=== PATIENT | female | born 1975 | race Caucasian/White ===

== ENCOUNTER → 2016-08-08 | Outpatient (CLI) | payer OTHER ==
[~2016-08-08] VITALS: Ht 160 cm; Wt 96.6 kg
[~2016-08-08] MED LIST: AMITIZA8 MCG PO; AMRIX15 MG PO; B12INJ IM; BACLOFEN VG; BIEST/PROGEST; BUTRANS1 EAC1 TD; CIPRO500 MG PO; DESYREL100 MG PO; DESYREL150 MG PO; DIGESTIVE ENZY1 EAC3 PO; DULCOLAX5 MG PO; FENTANYL PA12 MCG/HR TP; FENTANYL PA25 MCG/HR TP; FISH OIL 1,0001 EAC5 PO; FISHOIL; FLONASE 0.05%50 MCG NASAL; HYDROCODON-ACE1 EAC7 PO; HYDROCODON-ACE1 EAC8 PO; HYDROCODONE-AP1 EA11 PO; HYDROCODONE-AP1 EAC6 PO; IBUPROFEN 200200 M1 PO; IBUPROFEN 600600 M1 PO; IRON PO; LEVSIN SL; LINZESS145 MCG PO; LYRICA150 MG PO; LYRICA200 MG PO; MIRALAX255 GM PO; MS CONTIN15 MG PO; NUCYNTA75 MG PO; OMEPRAZOLE 20 M20 M1 PO; ONE DAILY COMP1 EAC1 PO; PHENERGAN 25 MG25 M1 PO; PHENERGAN 25 MG25 MG PO; PRILOSEC 20 MG20 MG PO; PROBIOTIC1 EAC1 PO; REGLAN 5 MG TAB5 MG PO; SENOKOT-S1 TA1 PO; VANCOMYCIN PO; XANAX 0.25 MG0.25 MG PO; XANAX 0.5 MG0.5 MG PO; ZOFRAN4 MG PO; ZYRTEC10 M4 PO; [UNRECOGNIZED DRUG - OTHER]; [UNRECOGNIZED DRUG - OTHER]; [UNRECOGNIZED DRUG - OTHER]; [UNRECOGNIZED DRUG - OTHER]
--- NOTE | ~2016-08-08 | HPC ---
[facility] [place] [address] PAIN MANAGEMENT CONSULTATION Name: MAYUR GIFFORD Room #: REG [facility] M..#: [id number] Admission: 08/08/16 Attend Phys: Urban Wooten DO Discharge: Date of : 71 Report #: [id number] THIS REPORT FOR: //name// CC: Connie Boyer MD REFERRING PHYSICIAN: Connie Gonzalez M.D. CHIEF COMPLAINT: Abdominal pain, fibromyalgia pain. HISTORY OF PRESENT ILLNESS: As you know, the patient is a 40-year-old female who suffers from chronic abdominal pain, fibromyalgia pain, generalized pain disorder. The patient returns today in followup visit indicating that "this is her busy season." The patient is involved in traveling choir and they have chose a plan for the next couple of weeks. She returns today requesting refill on medication as she does find them beneficial. The patient comes today with a pain score of 3/10, states her pain is aching, sore and stabbing in sensation, exacerbated with eating and varies throughout the day. Medications and rest appear to be the only thing that improves the patient's pain. ALLERGIES: CONTRAST AGENT, OXYCODONE, NUBAIN, PROPOXYPHENE, DICYCLOMINE, TRAMADOL, VENLAFAXINE, KEFLEX, IMIPRAMINE, MORPHINE, OPIUM, ACETAMINOPHEN, BELLADONNA, CLARITHROMYCIN, GABAPENTIN, ANTIPSYCHOTICS, BUTRANS. SOCIAL HISTORY: The patient denies tobacco, alcohol or IV illicit drug use. She is unemployed. She is unaccompanied today. IMAGING: No new imaging available. PHYSICAL EXAMINATION: VITAL SIGNS: Blood pressure 126/77, pulse 92, respiratory rate 14, unlabored. The patient is 100% on room air. Height 5 feet 3 inches tall, weight 213 pounds, BMI calculated 37.7. GENERAL: Well developed, well nourished, well hydrated, morbidly obese 40-year-old female with flat affect, reporting pain at a level of 3/10. HEENT: Normocephalic, atraumatic. Pupils equal, round, reactive to light. Extraocular muscles are intact. EXTREMITIES: Show no clubbing, no cyanosis, no edema. MUSCULOSKELETAL: The patient is tender to palpation of 18 of 18 tender points indicative of a myofascial pain. ASSESSMENT: 1. Chronic undefined abdominal pain. 2. Fibromyalgia. 3. Myofascial pain. [address] [address] PAIN MANAGEMENT CONSULTATION Name: MAYUR GIFFORD [id number] Admission: 08/08/16 Attend Phys: Urban Wooten DO Discharge: Date of : 71 Report #: [id number] 4. Sedentary lifestyle. 5. Chronic intractable pain. PLAN: 1. The patient has returned today in followup visit where we have discussed at length her lack of activities and hobbies. The patient states that she recently did join a gym. She is paying for the gym on a monthly basis, but has yet to actually attend the gym itself. She is concerned of increasing pain. I have advised the patient at this time that we highly recommend she get involved in a formalized physical therapy program initially. This will help ease the patient into personal gym workouts and exercise program. A formalized program initially will give the patient the tools to begin an exercise program that will be positive for her both physically and mentally. I have provided the patient with a prescription for the physical therapy to begin as quickly as possible. This will help motivate the patient to become more physically active, which is the number one treatment option per the CDC's recommended guideline treatment for fibromyalgia, which is exercise and activities. The patient will begin the exercise program as quickly as possible, we are requesting a generalized assessment of the patient and myofascial techniques to adjust for patient's fibromyalgia symptoms of transitioning the patient from the formalized program into individualized program at her local gym. 2. The patient was provided refill on medications. I did discuss with the patient today that these medications ultimately will have to be discontinued. Continuation of opioid medications in an undefined abdominal pain condition is not clinically warranted. We have been providing these medications as the patient was doing workups for abdominal discomfort. There has been no specific etiology noted. Without a true and clear etiology and treatment plan, continuation of an opioid in a patient with fibromyalgia is a relative contraindication. I have discussed with the patient today our desire to begin weaning off the opioids as they are providing no prolonged improvement in her functional capacity. We will discuss this again in followup visit with plans to begin weaning opioids at that time. 3. The patient was provided a prescription of hydrocodone 7.5/325 one tab q. 8 hours p.r.n. for pain, ____. 4. The patient will be continued on her Lyrica 200 mg dose 1 tab p.o. b.i.d., I have given the patient #60 tablets, 2 refills. 5. The patient will return to our clinic in 3 months. At that time, she will be actively participating in physical workout routines. She will also be more involved in her choir and we should be able to begin weaning opioids at that point. As indicated above, chronic abdominal pain issues do not require ongoing opioid management. By: [id number] Urban Wooten DO /marcelino
[2016-08-08 10:13] VITALS: BP 126/77
== END ==
LOC: PAIN 07:32
DX: R10.9 Unspecified abdominal pain (principal); M79.7 Fibromyalgia; M79.1 Myalgia

== ENCOUNTER → 2016-11-07 | Outpatient (CLI) | payer OTHER ==
[~2016-11-07] VITALS: Ht 160 cm; Wt 97.3 kg
--- NOTE | ~2016-11-07 | HPC ---
[facility] [place] [place] [address] PAIN MANAGEMENT CONSULTATION Name: MAYUR GIFFORD Room #: REG CL M..#: [id number] Admission: 11/07/16 Attend Phys: Urban Wooten DO Discharge: Date of : 71 Report #: [id number] THIS REPORT FOR: //name// CC: Connie Boyer DATE OF SERVICE: 11/07/2016 REFERRING PHYSICIAN: Connie Gonzaelz M.D. CHIEF COMPLAINT: Abdominal pain and fibromyalgia pain. HISTORY OF PRESENT ILLNESS: As you know, the patient is a 41-year-old female followed by [facility] for chronic abdominal pain, fibromyalgia pain and generalized pain disorder. Today, the patient returns today in followup visit stating her pain has been exacerbated with changes in weather. She is now placing pain score 3/10. She indicates pain is aching sore and stabbing, exacerbated with eating, varies throughout the day. Medications rest and weather changes appear to improve the pain but also tend to exacerbate symptoms at times. She returns today in followup visit for continuation of medication therapy. She is denying any side effects of medication, feels medications do provide upwards of 75% improvement in overall pain, allowing her to go about her activities of daily living without significant pain interference. ALLERGIES: Please see the extensive list in chart. CURRENT MEDICATIONS: Lyrica, hydrocodone, fluticasone, cetirizine, ibuprofen, vitamin B12, alprazolam, digestive enzymes, lactobacillus, ondansetron and trazodone. SOCIAL HISTORY: The patient denies tobacco, alcohol, IV or illicit drug use. She is unemployed. She is unaccompanied today. IMAGING DATA: No new imaging available. PHYSICAL EXAMINATION: VITAL SIGNS: Blood pressure 112/68, pulse 102, respiratory rate 16 and unlabored. The patient is 100% on room air. Height 5 feet 3 inches tall, weight 214.4 pounds and BMI calculated 41.9. GENERAL: Well developed, well nourished and well hydrated, severely morbidly obese 41-year-old female appearing her stated age. Pain is rated at 3/10. HEENT: Normocephalic and atraumatic. Pupils equal, round and reactive to light. Extraocular muscles are intact. Sclerae nonicteric without injection. NEUROLOGICAL: Cranial nerves 2 through 12 grossly intact. Speech is fluent. EXTREMITIES: Show no clubbing, no cyanosis and no edema. [facility] [address] [place] [address] PAIN MANAGEMENT CONSULTATION Name: MAYUR GIFFORD [id number] Admission: 11/07/16 Attend Phys: Urban Wooten DO Discharge: Date of : 71 Report #: [id number] MUSCULOSKELETAL: The patient has positive tenderness to palpation of 18/18 tender points indicative of fibromyalgia. Upper extremity strength and lower extremity strength equal and symmetrical. There is no tenderness to palpation over the abdomen today. ASSESSMENT: 1. Chronic undefined abdominal pain. 2. Fibromyalgia. 3. Chronic intractable pain. PLAN: 1. The patient has returned today in followup visit for medication management. The patient and I had a very long discussion today about medication therapy. I did discuss with the patient that chronic abdominal pain cannot be treated successfully with opioid medications long-term. We have discussed with the patient that we are considering rotation of medication to nonopioid medication therapy. The patient suffers from fibromyalgia, which I believe is the source of the majority of her symptoms and opioids are relatively contraindicated. We have discussed this with the patient today. At this time, the patient does not wish to make any changes but is considering her options for change at her next visit. I do feel that chronic opioid therapy has improved the patient's pain levels to a minor degree but have not provided a long-term efficacy. The patient has requested refills for the next 3 months as she considered her options for her rotation of medications. 2. The patient was provided a prescription of hydrocodone/acetaminophen 7.5/325 one tab every 8 hours p.r.n. for pain, #90 releases of today, 4 weeks from today, 8 weeks from today, 3 months' worth of medication. 3. The patient was provided a prescription of Lyrica 200 mg dose 1 tab p.o. b.i.d., given #60, 2 refills, 3 months' worth of medication. 4. We will see the patient back in followup visit in 3 months where we will begin rotation from opioids to more appropriate medications for fibromyalgia symptoms. <ELECTRONICALLY SIGNED> By: Urban Wooten DO 11/09/16 1359 0730 0749 Urban Wooten DO /nt
[2016-11-07 09:54] VITALS: BP 112/68
== END | disposition home or self-care (01) ==
LOC: PAIN 07:27
DX: R10.9 Unspecified abdominal pain (principal); M79.7 Fibromyalgia; G89.29 Other chronic pain

== ENCOUNTER → 2017-04-30 | Outpatient (CLI) | payer OTHER ==
[~2017-04-30] VITALS: Ht 160 cm; Wt 100.9 kg
[~2017-04-30] MED LIST changes: +FLEXERIL PO; +MIRALAX17 GM PO; +SENOKOT8.6 MG PO
--- NOTE | ~2017-04-30 | HPC ---
[facility] [place] [address] PAIN MANAGEMENT CONSULTATION Name: MAYUR GIFFORD Room #: REG [facility] M.R.#: [id number] Admission: 04/30/17 Attend Phys: Urban Wooten DO Discharge: Date of : 71 Report #: [id number] THIS REPORT FOR: //name// CC: Connie Boyer DATE OF SERVICE: 04/30/2017 CHIEF COMPLAINT: Abdominal pain, fibromyalgia pain. HISTORY OF PRESENT ILLNESS: As you know, the patient is a 41-year-old female who complains of chronic abdominal pain and increasing fibromyalgia pain. The patient returns today in followup visit for medication management. She states that she has been involved more in some activities; specifically, she is doing some yoga at home and thinks that this is working beneficially. She says her pain has intensified with recent cold weather. This is due to her fibromyalgia. She returns today requesting refills of her hydrocodone therapy. She finds this beneficial for her abdominal symptoms. She is denying any side effects with their use. She has requested refills for the next 3 months. ALLERGIES: See the extensive list in chart. CURRENT MEDICATIONS: Pregabalin 200 mg twice a day, hydrocodone 7.5/325 one tab every 8 hours p.r.n. for pain, fluticasone 2 sprays each nostril per day, Zyrtec 10 mg per day, ibuprofen 200 mg 5 times a day, alprazolam 0.5 mg once a day, digestive enzymes once a day, Lactobacillus 1 tab per day, Zofran 4 mg per day, trazodone 150 mg p.o. at bedtime. IMAGING: No new imaging available. PHYSICAL EXAMINATION: VITAL SIGNS: Blood pressure 126/63, pulse 83, respiratory rate 14, unlabored. The patient is 99% on room air. Height 5 feet 3 inches tall, weight 222.4 pounds, BMI calculated 39.4. GENERAL: Well-developed, well-nourished, well-hydrated, morbidly obese 41-year-old female who appears her stated age. She is placing current pain score 3/10, generalized in nature. HEENT: Normocephalic, atraumatic. Pupils equal, round, reactive to light. EXTREMITIES: Show no clubbing, no cyanosis, no edema. MUSCULOSKELETAL: Tenderness to palpation at tender points indicative of fibromyalgia. ASSESSMENT: 1. Chronic abdominal pain. 2. Chronic pelvic pain. [address] [address] PAIN MANAGEMENT CONSULTATION Name: MAYUR GIFFORD Room #: REG [facility]#: [id number] Admission: 04/30/17 Attend Phys: Urban Wooten DO Discharge: Date of : 71 Report #: [id number] 3. Fibromyalgia. 4. Chronic intractable pain. PLAN: 1. The patient returns today in followup visit requesting refill on medications. She feels medications in conjunction with activities at home have begun to improve pain until a recent cold snap, which has gripped the [place] for approximately 3 weeks. The patient states typically her pain is fairly well controlled with current medical therapy. She wishes to continue on current medications. We did discuss with the patient today that she needs to become much more active. She needs to become certainly more active with exercise programs. She needs to be involved in aqua therapy, which has been shown to be very effective for fibromyalgia patients specifically in warm pools. I applaud the patient for beginning some yoga, but needs to do this consistently in conjunction with the aqua therapy. We also discussed the possibility of relocating to a warmer climate, which would reduce the effects of climate change here in the [place] area. The patient states that she cannot make a move at this time. She wished to continue therapy. She will try to increase her activity. She is concerned about weight gain and I believe that activity will improve her weight issues, but also improve her fibromyalgia. 2. The patient was provided a prescription of Lyrica 200 mg dose 1 tab p.o. b.i.d., given the patient #60 tablets, 2 refills. The patient is going to attempt to reduce her Lyrica, she believes this is the reason for her weight gain. This medication does show the potential for increase in weight, but this has to come with increased caloric intake and lack of caloric output. I believe activities such as exercise would mitigate the amount of weight, potential increase that she is receiving from the Lyrica and its effects. The patient is adamant that the medication is the source of the symptoms. She wishes to begin weaning off this medication, but understands that her pain will likely intensify. We have given the patient samples to reduce her dose from 200 mg twice a day to 150 mg twice a day for 1 week then down to 75 mg twice a day for 1 week and then off the medication entirely. 3. The patient was provided prescription of hydrocodone 7.5/325 one tab every 8 hours p.r.n. pain. I have given the patient #90, releases of today, 4 weeks from today, 8 weeks from today, 3 months' worth of medication. I have advised the patient that she is to take no more than 3 tablets a day, 3 tablets is the maximum to be allowed. We did discuss the concerns we have about opioid medication in fibromyalgia. Fibromyalgia is a contraindication for opioid therapy. We will continue the medication for her pelvic and abdominal pain, but have advised that her increased generalized pain cannot be and will not be treated with hydrocodone therapy. 4. We will see the patient back in followup visit in 3 months. She will contact our clinic in regards to her weaning of Lyrica. She will advise as whether or not she filled the 200 mg twice a day dose of the Lyrica or she [address] [address] PAIN MANAGEMENT CONSULTATION Name: MAYUR GIFFORD ZAINA Room #: REG CL [facility].#: [id number] Admission: 04/30/17 Attend Phys: Urban Wooten DO Discharge: Date of : 71 Report #: [id number] wishes a reduced dose and she can contact our clinic to advice of the dose level she reaches without loss of efficacy. <ELECTRONICALLY SIGNED> By: Urban Wooten DO 05/07/17 0906 [id number] Urban Wooten DO /nt
[2017-04-30 10:54] VITALS: BP 126/63
== END ==
LOC: PAIN 07:13
DX: G89.29 Other chronic pain (principal); R10.9 Unspecified abdominal pain; M79.7 Fibromyalgia; R10.2 Pelvic and perineal pain

== ENCOUNTER → 2018-03-11 | Outpatient (CLI) | payer OTHER ==
[~2018-03-11] VITALS: Ht 160 cm; Wt 96.6 kg
--- NOTE | ~2018-03-11 | HPC ---
[facility] [place] [address] [place] [address] PAIN MANAGEMENT CONSULTATION Name: MAYUR GIFFORD Room #: REG [facility] M..#: [id number] Admission: 03/11/18 Attend Phys: Urban Wooten DO Discharge: Date of : 71 Report #: [id number] THIS REPORT FOR: //name// CC: Connie Boyer DATE OF SERVICE: 03/11/2018 CHIEF COMPLAINT: Abdominal pain, generalized myalgias secondary to fibromyalgia. HISTORY OF PRESENT ILLNESS: As you know, the patient is a very unfortunate but pleasant 42-year-old female who returns today in followup visit with chronic abdominal pain and generalized body pain for which she places pain score 2/10. She states that change in weather has exacerbated her chronic pain issues. This in conjunction with a newly diagnosis bronchitis has made the patient feel much "poorer." She returns today in followup visit requesting refill on medications. 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 She returns requesting refill on medications at current dosing. She is denying side effects of somnolence, decreased mental acuity, disorientation, confusion, mental slowing with the use. ALLERGIES: CONTRAST AGENT, OXYCODONE, NUBAIN, PROPOXYPHENE, DICYCLOMINE, TRAMADOL, VENLAFAXINE, CEPHALEXIN, IMIPRAMINE, MORPHINE, OPIUM, ACETAMINOPHEN, BELLADONNA, CLARITHROMYCIN, GABAPENTIN, ANTIPSYCHOTICS, IV IRON INFUSIONS AND BUTRANS. CURRENT MEDICATIONS: For pain, hydrocodone 7.5/325 one tab every 6 hours p.r.n. for pain, Lyrica 200 mg twice a day. SOCIAL HISTORY: The patient denies tobacco, alcohol, IV or illicit drug use. She is on disability. She is unaccompanied today. IMAGING: No new imaging available. PQRS: The patient has no known osteoarthritis or rheumatoid arthritis. She is placing pain intensity 2/10. She is not a fall risk, has not had a fall in the last 3 months. She is not on blood thinners. She is not treated for hypertension. She has been on chronic opioids for greater than 6 weeks. She is at moderate risk for opioid addiction. She is placing pain impact at 37/70, moderate interference of daily activities secondary to pain. PHYSICAL EXAMINATION: VITAL SIGNS: Blood pressure 102/89, pulse 107, respiratory rate 14 and [facility] [address] [place] [address] PAIN MANAGEMENT CONSULTATION Name: MAYUR GIFFORD Room #: REG [facility].#: [id number] Admission: 03/11/18 Attend Phys: Urban Wooten DO Discharge: Date of : 71 Report #: [id number] unlabored. The patient is 97% on room air. Height 5 feet 3 inches tall, weight 213 pounds, BMI calculated 37.7. GENERAL: Well-developed, well-nourished, well-hydrated, class 1 morbidly obese 42-year-old female appearing stated age, placing current pain score 2/10. HEENT: Normocephalic, atraumatic. Pupils equal, round, reactive to light. Extraocular muscles are intact. EXTREMITIES: Show no clubbing, no cyanosis, no edema. MUSCULOSKELETAL: There is decreased respiratory effort. There is wheezing noted with inhalation and exhalation. ASSESSMENT: 1. Chronic abdominal pain. 2. Chronic pelvic pain. 3. Fibromyalgia. 4. Chronic intractable pain. PLAN: 1. The patient returns today in followup visit requesting refill on medications. She feels medications are working beneficially for pain control. We have had a long discussion again with the patient about the use of these medications. We are utilizing the medication specifically for the chronic abdominal symptoms and pelvic pain. They are not to be used for her generalized fibromyalgia pain as it is noted the fibromyalgia pain is unaffected by opioid medications and should not be utilized based on CDC's recommendations. We will continue the patient on the current medications for her chronic abdominal pain, chronic pelvic pain with the caveat that she is not to use this medication for generalized body pain. 2. We reviewed the fact that opiate medications are being used to provide analgesia adequate to support activities of daily living, not attempting to achieve a specific pain score on the 0-10 Visual Analog Scale. The current opiate medications are providing sufficient analgesia to allow the patient to participate in activities of daily living. The patient is not exhibiting any aberrant behavior suggestive of drug diversion. The patient is not having any adverse reactions to medications. The patient is not suffering from daytime somnolence or mental acuity changes. The patient is managing opiate-induced constipation with appropriate ezee-pje-jgnfhje agents and dietary considerations. The patient was counseled on concern for caution with operating a motor vehicle while using opiate medications. A physical exam was performed and the patient's functional status was evaluated. All patients with back pain were advised against the bed rest greater than 4 days and were advised to return to normal activities. Pain score assessment was noted and the treatment plan was reviewed with the patient. All current medications, both prescribed and OTC were reviewed and reconciled on the electronic medical record. Tobacco screening was accomplished and smoking cessation was advised when indicated. BMI was noted and diet/exercise [address] [address] PAIN MANAGEMENT CONSULTATION Name: MAYUR GIFFORD Room #: REG [facility].#: [id number] Admission: 03/11/18 Attend Phys: Urban Wooten DO Discharge: Date of : 71 Report #: [id number] modification was recommended for all patients following outside normal parameters. I reviewed with the patient today their responsibilities to safeguard prescription medications, reviewed their responsibility to utilize medications only as prescribed by the physician. They are to seek and receive pain medications only from 1 physician group ( [facility]). They are to use 1 pharmacy and keep the clinic informed if they change pharmacies. Their responsibilities include making followup visits in a timely fashion and to avoid abrupt discontinuation of medication usage. Their responsibilities further include bringing their medications (bottles from the pharmacy with residual pills) to the visit for possible confirmation of pill counts and the patient understands it is their responsibility to submit to random drug screens to ensure both that the medications prescribed are present, and that no other controlled substances are present. All prescriptions provided today were generated electronically. 3. The patient was provided prescription of [place] 7.5/325 one tab every 8 hours p.r.n. for pain, #90 releases of today, 4 weeks from today, 8 weeks from today, 3 months' worth of medication. The patient was advised that she is taking 22.5 morphine equivalents a day, well below CDC's recommended 90 morphine equivalents maximum. 4. The patient provided a urine drug screen today as part of our monitoring program based on our opioid contract. We will have the results back in approximately 1 week. 5. We will see the patient back in followup visit in 3 months for ongoing medical therapy. <ELECTRONICALLY SIGNED> By: Urban Wooten DO 03/12/18 0814 [id number] [id number] Urban Wooten DO /nt
[2018-03-11 08:57] VITALS: BP 102/89
== END ==
LOC: PAIN 08:38
DX: M79.7 Fibromyalgia (principal); R10.9 Unspecified abdominal pain; G89.4 Chronic pain syndrome; R10.2 Pelvic and perineal pain

== ENCOUNTER → 2018-06-17 | Outpatient (CLI) | payer OTHER ==
[~2018-06-17] VITALS: Ht 160 cm; Wt 93.2 kg
--- NOTE | ~2018-06-17 | HPC ---
[facility] [place] [address] PAIN MANAGEMENT CONSULTATION Name: MAYUR GIFFORD Room #: REG [facility] M..#: [id number] Admission: 06/17/18 ������������������ Attend Phys: Urban Wooten DO Discharge: ������������������ Date of : 71 Report #: [id number] THIS REPORT FOR: //name// CC: Connie Boyer DATE OF SERVICE: 06/17/2018 CHIEF COMPLAINT: Abdominal pain and generalized myalgias secondary to fibromyalgia. HISTORY OF PRESENT ILLNESS: As you know, the patient is a very unfortunate but pleasant 42-year-old female who returns today in followup visit for medication treatments for chronic abdominal pain, generalized body pain due to fibromyalgia. The patient is placing pain today at around 3/10. She states the cold weather in conjunction with 2 different recent hospitalizations have led to increasing pain issues. The patient has been hospitalized twice for pneumonia and is continuing workup with Pulmonology in regards to long-term pneumonia issues. There is some concern the patient may be suffering from some type of immune dysfunction. She indicates that her chronic abdominal pain has been relatively steady, but her fibromyalgia symptoms have progressed. She returns to discuss continuation of medication management. She is denying any side effects to the Lyrica and Fruitland to date. ALLERGIES: IV CONTRAST AGENT, OXYCODONE, NUBAIN, PROPOXYPHENE, DICYCLOMINE, TRAMADOL, VENLAFAXINE, CEPHALEXIN, IMIPRAMINE, MORPHINE, OPIUM, ACETAMINOPHEN, BELLADONNA, CLARITHROMYCIN, GABAPENTIN, ANTIPSYCHOTICS, IV and IRON INFUSIONS and BUTRANS PATCHES. CURRENT MEDICATIONS: For pain, hydrocodone 7.5/325 one tab p.o. q. 6 hours p.r.n. for pain and Lyrica 150 mg b.i.d. SOCIAL HISTORY: The patient denies tobacco, alcohol or IV or illicit drug use. She is on disability and unaccompanied today. IMAGING DATA: No new imaging available. PQRS: The patient has no known osteoarthritis or rheumatoid arthritis. The patient is placing pain score 3/10. She is not a fall risk, has not had a fall in the last 3 months. She uses no ambulatory devices. She is not on blood thinners, not treated for hypertension. She is on chronic opioids. She has a moderate risk for opioid addiction. She is placing pain impact score 37/70, moderate interference of daily activities secondary to pain. [address] [address] PAIN MANAGEMENT CONSULTATION Name: MAYUR GIFFORD Room #: REG CLI [facility].#: [id number] Admission: 06/17/18 ������������������ Attend Phys: Urban Wooten DO Discharge: ������������������ Date of : 71 Report #: [id number] PHYSICAL EXAMINATION: VITAL SIGNS: Blood pressure 102/66, pulse 73 and respiratory rate 14 and unlabored. The patient is 100% on room air. Height 5 feet 3 inches tall, weight 205.4 pounds and BMI calculated 36.4. GENERAL: Well-developed, well-nourished, well-hydrated 42-year-old female appearing stated age, placing current pain score 3/10. HEENT: Normocephalic and atraumatic. Pupils equal, round and reactive to light. EXTREMITIES: Show no clubbing, no cyanosis and no edema. MUSCULOSKELETAL: No palpatory tenderness is noted over the paraspinal musculature of the cervical, thoracic or lumbar spine. There are multiple tender points on the typical distribution of fibromyalgia 1618. ASSESSMENT: 1. Chronic abdominal pain. 2. Chronic pelvic pain. 3. Fibromyalgia. 4. Chronic intractable pain. PLAN: 1. The patient returns today in followup visit indicating 2 recent hospitalizations for pneumonia issues. Apparently, the patient is being worked up for possible immune dysfunction but no specific testing has been positive for any specific, IgA, IgM or IgG deficiency. She is following up with Pulmonology in regards to chronic pneumonia issues and we await the results from that discussion. We recommend that she follow up with her PCP to continue treatment and referral for her ongoing issues in regards to possible immune deficiency or chronic pneumonia that has yet to be resolved. 2. In regards to the patient's ongoing pain, we will continue the patient on the Lyrica 150 mg tabs 1 tab p.o. b.i.d., I have given the patient #60 tablets, 2 refills, 3 months' worth of medication. This is the baseline medication for her fibromyalgia. 3. The patient was provided a prescription of Fruitland 7.5/325 one tab p.o. q. 8 hours p.r.n. for pain, I have given the patient #90 tablets to release today, 4 weeks from today, 8 weeks from today, 3 months' worth of medication. 4. We reviewed with the patient her drug screen from 03/11/2018 at her last visit. She was positive for alprazolam, cyclobenzaprine, hydrocodone, Lyrica and Xanax. These appear to be appropriate based on the patient's drug regimen. This appeared to be an appropriate urine drug screen. As you are aware drug screens are part of our monitoring program for our chronic opioid patients. 5. We will see the patient back in followup visit in 3 months. ��������������������������������������������� ���������������������������������������� By: ��������������������������������������������� [id number] Urban Wooten DO /marcelino
[2018-06-17 10:42] VITALS: BP 102/66
--- NOTE | 2018-06-17 10:55 | NUR ---
[facility] Assessment: 1. History of Osteoarthritis: Not Applicable History of Rheumatoid Arthritis: Not Applicable 2. Height: 5 ft. 3 in. 160.0 cm. Weight: 205.4 lb. oz. 93.169 kg. Patient's BMI: 36.4 3. Vital Signs: BP: 102/66 Pulse: 73 Resp: 14 Temp: 02 Sat: 100 ECG Mon: 4. Pain Intensity: 3 5. Fall Risk: Dizziness: N Needs help standing or walking: N Fallen in the last 3 months: N Fall risk comments: 6. Patient on Blood Thinner: None 7. History of Hypertension: N 8. Opioid Therapy greater than 6 weeks: Y Opiate Contract Signed: 11/29/15 9. Risk Assessment Tool Provided: MODERATE RISK 07/20 10. Functional Assessment Tool: 11. Recreational Drug Use: Never Drug Type: Tobacco Use: Never Smoker Tobacco Type: Amount or Packs/day: How Many Years: Alcohol Use: No Frequency: Quant:
== END ==
LOC: PAIN 06:45
DX: R10.9 Unspecified abdominal pain (principal); R10.2 Pelvic and perineal pain; G89.4 Chronic pain syndrome; M79.7 Fibromyalgia; Z79.899 Other long term (current) drug therapy

== ENCOUNTER → 2018-09-16 | Outpatient (CLI) | payer OTHER ==
[~2018-09-16] VITALS: Ht 160 cm; Wt 89.9 kg
[2018-09-16 12:56] VITALS: BP 145/89
--- NOTE | 2018-09-16 12:59 | NUR ---
Pain Clinic Assessment: 1. History of Osteoarthritis: Not Applicable History of Rheumatoid Arthritis: Not Applicable 2. Height: 5 ft. 3 in. 160.0 cm. Weight: 198.2 lb. oz. 89.903 kg. Patient's BMI: 35.1 3. Vital Signs: BP: 145/89 Pulse: 104 Resp: 16 Temp: 02 Sat: 99 ECG Mon: 4. Pain Intensity: 6-7 5. Fall Risk: Dizziness: N Needs help standing or walking: N Fallen in the last 3 months: N Fall risk comments: 6. Patient on Blood Thinner: None 7. History of Hypertension: N 8. Opioid Therapy greater than 6 weeks: Y Opiate Contract Signed: 11/29/15 9. Risk Assessment Tool Provided: MODERATE RISK 07/20 10. Functional Assessment Tool: 11. Recreational Drug Use: Never Drug Type: Tobacco Use: Never Smoker Tobacco Type: Amount or Packs/day: How Many Years: Alcohol Use: No Frequency: Quant:
--- NOTE | 2018-09-17 07:21 | HPC ---
[facility] [place] [address] PAIN MANAGEMENT CONSULTATION Name: BALTAMAYUR ZAINA Room #: REG [facility].#: [id number] Admission: 09/16/18 ������������������ Attend Phys: Mayur Taveras Discharge: ������������������ Date of : 71 Report #: [id number] THIS REPORT FOR: //name// CC: Mayur Clarke Rosalind DATE OF SERVICE: 09/16/2018 CHIEF COMPLAINT: Abdominal pain, generalized malaise. HISTORY OF PRESENT ILLNESS: This is a 43-year-old female who returns to the pain clinic today for her chronic abdominal pain and generalized body aches and pains. She places her pain score today at 6-7. She tells me that it is higher than her normal because she recently had UTI that she was being treated for with antibiotics, but she is still not feeling better, even though she has completed those. She tells me her interstitial cystitis has flared up and she feels like she still has urinary tract infection, complaining of slightly dizzy feeling today and she is nauseated, having vomited 3 times earlier today. Her blood pressure is slightly elevated for her. She is afebrile, but tells me that her entire body feels bad like she is sick, wondering if there is something other than just a urinary tract infection going on. She is here to get her pain medications from us that we give her for her chronic abdominal and pelvic pain, stating that they normally work much better than they are working right now since her pain has increased. ALLERGIES: Significant list of IODINE, PERCOCET, NUBAIN, DARVOCET, BENTYL, ULTRAM, EFFEXOR, KEFLEX, IMIPRAMINE, MORPHINE, OPIUM, BELLADONNA, BIAXIN AND GABAPENTIN. CURRENT LIST OF MEDICATIONS: Lyrica 150 b.i.d., hydrocodone 7.5/325 p.r.n., Senokot, Flexeril, Zyrtec, Xanax 0.5 mg 4 times a day, Digestive enzyme probiotic and trazodone 150 at bedtime. PQRS: 1. She has no known osteoarthritis or rheumatoid arthritis. 2. Height is 5 feet 3 inches, weight is 198, BMI is 35. 3. VITAL SIGNS: 145/89, pulse is 104, respirations 16, oxygen sat is 99. 4. Pain score 6-7. 5. Complains of dizziness today, does not need help walking or standing. Has not fallen in the last 3 months. 6. The patient is not on any blood thinners, does not take medicines for hypertension. 7. Opioid therapy is greater than 6 weeks; therefore, an opioid signed contract is on the chart. She has a moderate risk assessment tool and her functional assessment of 37/70. 8. Recreational drug use, she denies. She is not a [place] [address] PAIN MANAGEMENT CONSULTATION Name: MAYUR GIFFORD ZAINA Room #: REG [facility]vis#: [id number] Admission: 09/16/18 ������������������ Attend Phys: Mayur Taveras Discharge: ������������������ Date of : 71 Report #: [id number] alcohol. We did check the prescription monitoring system. The patient is filling appropriately for her medications. There is also a recent drug screen on the chart that is appropriate for her medications. PHYSICAL EXAMINATION: GENERAL: This is a well-developed, well-nourished, well-hydrated class 1 morbidly obese 43-year-old female who appears her stated age, placing her current pain score at 6-7 today. The patient looks tired, but she does not look like she feels well today. HEENT: Normocephalic, atraumatic. Pupils equal, round and reactive to light. Extraocular muscles are intact. EXTREMITIES: No clubbing, no cyanosis, no edema. ABDOMEN: Complains of tenderness in her lower abdomen and pelvic area to the touch. Nausea present today. The patient was dry heaving while I entered the room with no emesis resulted. ASSESSMENT: 1. Chronic abdominal pain. 2. Chronic pelvic pain. 3. Fibromyalgia. 4. Chronic intractable pain. 5. Recent urinary tract infection. 6. Complex medical management under terms of written opioid agreement. We reviewed the fact that opiate medications are being used to provide analgesia adequate to support activities of daily living, not attempting to achieve a specific pain score on the 0-10 Visual Analog Scale. The current opiate medications are providing sufficient analgesia to allow the patient to participate in activities of daily living. The patient is not exhibiting any aberrant behavior suggestive of drug diversion. The patient is not having any adverse reactions to medications. The patient is not suffering from daytime somnolence or mental acuity changes. The patient is managing opiate-induced constipation with appropriate opsf-iqk-gedgfwz agents and dietary considerations. The patient was counseled on concern for caution with operating a motor vehicle while using opiate medications. A physical exam was performed and the patient's functional status was evaluated. All patients with back pain were advised against the bed rest greater than 4 days and were advised to return to normal activities. Pain score assessment was noted and the treatment plan was reviewed with the patient. All current medications, both prescribed and OTC were reviewed and reconciled on the electronic medical record. Tobacco screening was accomplished and smoking cessation was advised when indicated. BMI was noted and diet/exercise modification was recommended for all patients following outside normal [facility] [address] [place] [address] PAIN MANAGEMENT CONSULTATION Name: MAYUR GIFFORD ZAINA Room #: REG CL M.R.#: [id number] Admission: 09/16/18 ������������������ Attend Phys: Mayur COLE Calixtoalma Discharge: ������������������ Date of : 71 Report #: [id number] parameters. I reviewed with the patient today their responsibilities to safeguard prescription medications, reviewed their responsibility to utilize medications only as prescribed by the physician. They are to seek and receive pain medications only from 1 physician group ( [facility]). They are to use 1 pharmacy and keep the clinic informed if they change pharmacies. Their responsibilities include making followup visits in a timely fashion and to avoid abrupt discontinuation of medication usage. Their responsibilities further include bringing their medications (bottles from the pharmacy with residual pills) to the visit for possible confirmation of pill counts and the patient understands it is their responsibility to submit to random drug screens to ensure both that the medications prescribed are present, and that no other controlled substances are present. All prescriptions provided today were generated electronically. PLAN: 1. We discussed treatment options with the patient today. The patient tells me that normally her pain medicines that we prescribe for her does help her pain quite significantly and is able to function quite well with her daily activities, though today she is feeling quite sickly. She needs a refill of her medications. Scripts given for hydrocodone 7.5/325, #90 for release today, 4-week and 8-week and Lyrica 150 mg b.i.d. #60 with 2 additional refills. This places her at the 33 morphine mEq according to the CDC guidelines well under their recommendations. 2. The patient thinks that her urinary tract infection is not cleared. I explained that she needs to follow up with her primary care doctor that it could, possibly if not cleared, result in a kidney infection. The patient is afebrile today, but does appear shaky and very lethargic and has appearance of not feeling well at all. I encouraged her to call her primary care doctor upon leaving here and if she is unable to be seen, then she needs to follow up with [facility] since that is where her primary care doctor would likely see her. The patient verbalizes understanding. She said that her interstitial cystitis has flared as well and she does not feel like this is a normal urinary tract infection that she normally is treated for. 3. The patient dismissed to home after Dr. Urban Wooten did see the patient and collaborated care. The patient will follow up in 3 months' time period with us. ��������������������������������������������� <ELECTRONICALLY SIGNED> ���������������������������������������� By: Mayur Taveras ��������������������������������������������� 09/17/18 0721 [id number] Mayur Taveras /marcelino
== END ==
LOC: PAIN 06:51
DX: R10.9 Unspecified abdominal pain (principal); R10.2 Pelvic and perineal pain; G89.29 Other chronic pain; N39.0 Urinary tract infection, site not specified; M79.7 Fibromyalgia; Z79.899 Other long term (current) drug therapy

== ENCOUNTER → 2018-12-23 | Outpatient (CLI) | payer OTHER ==
[~2018-12-23] VITALS: Ht 160 cm; Wt 89.4 kg
[2018-12-23 13:50] VITALS: BP 144/63
--- NOTE | 2018-12-23 13:58 | NUR ---
Pain Clinic Assessment: 1. History of Osteoarthritis: Not Applicable History of Rheumatoid Arthritis: Not Applicable 2. Height: 5 ft. 3 in. 160.0 cm. Weight: 197.0 lb. oz. 89.359 kg. Patient's BMI: 34.9 3. Vital Signs: BP: 144/63 Pulse: 93 Resp: 16 Temp: 02 Sat: 100 ECG Mon: 4. Pain Intensity: 2 5. Fall Risk: Dizziness: N Needs help standing or walking: N Fallen in the last 3 months: N Fall risk comments: 6. Patient on Blood Thinner: None 7. History of Hypertension: N 8. Opioid Therapy greater than 6 weeks: Y Opiate Contract Signed: 11/29/15 9. Risk Assessment Tool Provided: MODERATE RISK 7 10. Functional Assessment Tool: 11. Recreational Drug Use: Never Drug Type: Tobacco Use: Never Smoker Tobacco Type: Amount or Packs/day: How Many Years: Alcohol Use: No Frequency: Quant:
--- NOTE | 2018-12-25 12:45 | H ---
[facility] [place] [address] HISTORY AND PHYSICAL Name: MAYUR GIFFORD ZAINA Room #: REG [facility] M.R.#: [id number] Admission: 12/23/18 ������������������ Attend Phys: Mayur Taveras Discharge: ������������������ Date of : 71 Report #: [id number] THIS REPORT FOR: //name// CC: Mayur Boyer DATE OF SERVICE: 12/23/2018 CHIEF COMPLAINT: Abdominal pain, generalized malaise. HISTORY OF PRESENT ILLNESS: This is a 43-year-old female who returns to the pain clinic today for her chronic abdominal pain and general aches and pains that she experiences with her fibromyalgia. The patient is reporting a pain score of 2/10 today, which is quite low for her. It is an aching soreness that she experiences in her abdomen, it does increase with eating, but her medications and rest are very beneficial. She reports that she has recently been sick with upper respiratory and sinus infection and has been slowly getting to feel better. The patient would like a refill of her medications today. She reports that she has no problems with constipation since she takes a probiotic and Senokot on a daily basis. ALLERGIES: IODINE, PERCOCET, NUBAIN, DARVOCET, BENTYL, ULTRAM, EFFEXOR, KEFLEX, IMIPRAMINE, MORPHINE, B AND O SUPPOSITORIES, BIAXIN, GABAPENTIN, BUTRANS and IRON. CURRENT LIST OF MEDICATIONS: Lyrica 150 mg daily, hydrocodone 7.5 mg p.r.n., Senokot, Flexeril, Flonase, Zyrtec, Xanax, probiotic, and trazodone. PQRS: 1. She has known arthritic or osteoarthritis. Does have fibromyalgia. 2. Height is 5 feet 3 inches, weight is 197, BMI is 34. 3. Vital signs: Blood pressure 144/63, pulse is 93, respirations 16, oxygen sat 100. 4. Pain score is 2/10. 5. Denies dizziness, does not need help walking and standing. Has not fallen in the last 3 months. 6. The patient is not on any blood thinners or hypertension medicines. 7. Opioid therapy is greater than 6 weeks; therefore, an opioid signed contract is on the chart. Risk assessment tool is low. Functional assessment is . 8. Does not use any recreational drugs. Does not smoke and does not drink alcohol. According to the prescription monitoring system, the patient is filling appropriately and there is a recent drug screen on the chart that is appropriate as well. [address] [address] HISTORY AND PHYSICAL Name: MAYUR GIFFORD ZAINA Room #: REG CL Yasmin.#: [id number] Admission: 12/23/18 ������������������ Attend Phys: Mayur Taveras Discharge: ������������������ Date of : 71 Report #: [id number] PHYSICAL EXAMINATION: GENERAL: This is a well-developed, well-nourished, class 1 morbidly obese, 43-year-old female who appears her stated age, placing her current pain score at 2/10 today. She is alert and orientated. HEENT: Normocephalic, atraumatic. Extraocular eye muscles are intact. Mucous membranes are moist. CHEST: Clear to auscultation. EXTREMITIES: No clubbing, no cyanosis, no edema. ABDOMEN: Complains of tenderness in the lower abdomen and pelvic region that is tender to the touch. ASSESSMENT: 1. Chronic abdominal pain. 2. Chronic pelvic pain. 3. Fibromyalgia. 4. Chronic intractable pain. 5. Complex medical management under terms of written opioid agreement. We reviewed the fact that opiate medications are being used to provide analgesia adequate to support activities of daily living, not attempting to achieve a specific pain score on the 0-10 Visual Analog Scale. The current opiate medications are providing sufficient analgesia to allow the patient to participate in activities of daily living. The patient is not exhibiting any aberrant behavior suggestive of drug diversion. The patient is not having any adverse reactions to medications. The patient is not suffering from daytime somnolence or mental acuity changes. The patient is managing opiate-induced constipation with appropriate honl-zyr-jhcncvq agents and dietary considerations. The patient was counseled on concern for caution with operating a motor vehicle while using opiate medications. A physical exam was performed and the patient's functional status was evaluated. All patients with back pain were advised against the bed rest greater than 4 days and were advised to return to normal activities. Pain score assessment was noted and the treatment plan was reviewed with the patient. All current medications, both prescribed and OTC were reviewed and reconciled on the electronic medical record. Tobacco screening was accomplished and smoking cessation was advised when indicated. BMI was noted and diet/exercise modification was recommended for all patients following outside normal parameters. I reviewed with the patient today their responsibilities to safeguard prescription medications, reviewed their responsibility to utilize medications only as prescribed by the physician. They are to seek and receive pain medications only from 1 physician group ([facility]). They are to use 1 pharmacy and keep the clinic informed if they change pharmacies. Their [address] [address] HISTORY AND PHYSICAL Name: MAYUR GIFFORD Room #: REG CLSara Jarvis#: [id number] Admission: 12/23/18 ������������������ Attend Phys: Mayur Taveras Discharge: ������������������ Date of : 71 Report #: [id number] responsibilities include making followup visits in a timely fashion and to avoid abrupt discontinuation of medication usage. Their responsibilities further include bringing their medications (bottles from the pharmacy with residual pills) to the visit for possible confirmation of pill counts and the patient understands it is their responsibility to submit to random drug screens to ensure both that the medications prescribed are present, and that no other controlled substances are present. All prescriptions provided today were generated electronically. PLAN: 1. We discussed treatment options with the patient today. The patient feels that her hydrocodone is quite beneficial in helping some of her abdominal pain. Scripts given today for hydrocodone 7.5/325, #90 for today, 4-week and 8-week release. According to the CDC guidelines, this places the patient at 22.5 morphine mEq per day, well below their guidelines. 2. Scripts given for Lyrica 150 mg, #60 with 2 additional refills. The patient is very happy that this medication has gone generic saving her $185 a month per prescription, she finds no difference from the brand name to generic, still finds it very beneficial in helping with her fibromyalgia pain. 3. The patient is seen today in collaboration with Dr. Urban Wooten, who did see the patient as well. We will see her again in 2 months for followup. The patient will call for an appointment. ��������������������������������������������� <ELECTRONICALLY SIGNED> ���������������������������������������� By: Mayur Taveras ��������������������������������������������� 12/25/18 1245 [id number] Mayur van
== END ==
LOC: PAIN 12-17 06:50
DX: R10.9 Unspecified abdominal pain (principal); R10.2 Pelvic and perineal pain; M79.7 Fibromyalgia; G89.29 Other chronic pain; Z88.8 Allergy status to other drugs, medicaments and biological substances; Z79.899 Other long term (current) drug therapy; Z79.891 Long term (current) use of opiate analgesic

== ENCOUNTER → 2019-03-18 | Outpatient (CLI) | payer OTHER ==
[~2019-03-18] VITALS: Ht 160 cm; Wt 87.1 kg
[2019-03-18 13:01] VITALS: BP 123/69
--- NOTE | 2019-03-18 13:06 | NUR ---
Pain Clinic Assessment: 1. History of Osteoarthritis: Not Applicable History of Rheumatoid Arthritis: Not Applicable 2. Height: 5 ft. 3 in. 160.0 cm. Weight: 192.0 lb. oz. 87.091 kg. Patient's BMI: 34.0 3. Vital Signs: BP: 123/69 Pulse: 88 Resp: 16 Temp: 02 Sat: 100 ECG Mon: 4. Pain Intensity: 4-5 5. Fall Risk: Dizziness: N Needs help standing or walking: N Fallen in the last 3 months: Y Fall risk comments: 6. Patient on Blood Thinner: None 7. History of Hypertension: N 8. Opioid Therapy greater than 6 weeks: Y Opiate Contract Signed: 11/29/15 9. Risk Assessment Tool Provided: MODERATE RISK 7 10. Functional Assessment Tool: 11. Recreational Drug Use: Never Drug Type: Tobacco Use: Never Smoker Tobacco Type: Amount or Packs/day: How Many Years: Alcohol Use: No Frequency: Quant:
--- NOTE | 2019-03-19 16:12 | HPC ---
[facility] [place] [address] PAIN MANAGEMENT CONSULTATION Name: BALTAMAYUR ZAINA Room #: REG [facility] M.R.#: [id number] Admission: 03/18/19 Attend Phys: Mayur Taveras Discharge: Date of : 71 Report #: [id number] THIS REPORT FOR: //name// CC: Mayur Lindsay DATE OF SERVICE: 03/18/2019 CHIEF COMPLAINT: Abdominal pain, left leg pain. HISTORY OF PRESENT ILLNESS: This is a 43-year-old female who returns to the pain clinic today for her refill of medications that she takes for her chronic abdominal and pelvic pain, though she reports that she fell at the end of January coming out of choir practice and hurt her left leg and her lower back. She reports she has been going to physical therapy 1-2 times a week and the chiropractor 3-4 times a week. She feels that recently her back pain has decreased, continues to have ongoing leg pain that does radiate from her hip down to her ankle. It is a sore, stabbing, aching pain that is worse with walking. She is using a cane presently today. She feels that her medications have been helpful, though it has been a rough month, she reports. She denies any problems with constipation or daytime sleepiness. The patient also reports that Dr. Woo, her psychiatrist, is going to stop private practice, and so, she is needing to find another psychiatrist to take over her care. He has been prescribing her Flexeril that she takes occasionally for her ongoing muscle spasms and is wondering if we would take over writing this on an as needed basis. ALLERGIES: Please see extensive list in the medical record. MEDICATIONS: Lyrica 150 mg, hydrocodone 7.5/325 p.r.n., Senokot, Flexeril 10 mg daily, Flonase, Zyrtec, alprazolam 0.5 mg p.r.n., probiotic, digestive enzymes, trazodone 150 mg at bedtime. PQRS: 1. She denies a history of osteoarthritis or rheumatoid arthritis. 2. Height is 5 feet 3 inches, weight is 192, BMI is 34. Vital signs 123/69, pulse is 88, respirations 16, oxygen sat is 100. 3. Pain score 4-5. 4. Denies dizziness, does not need help walking or standing, though using a cane today due to recent fall that she has fallen in the last 3 months. 5. The patient is not on any blood thinners or hypertension medicines. 6. Opioid therapy is greater than 6 weeks; therefore, an opioid signed contract is on the chart. Risk assessment is moderate. Functional assessment is . [address] [address] PAIN MANAGEMENT CONSULTATION Name: MAYUR GIFFORD ZAINA Room #: REG CLI [facility].#: [id number] Admission: 03/18/19 Attend Phys: Mayur Taveras Discharge: Date of : 71 Report #: [id number] 7. Recreational drug use, is denied. She is not a smoker and does not drink alcohol. According to the prescription monitoring system, the patient is filling appropriately for her medications. She is due next week to have her hydrocodone filled. She does take alprazolam, benzodiazepine and hydrocodone, but she takes these very cautiously and has been stable on both meds for quite some time. There is a drug screen on the chart that is appropriate. We will recheck that at her next appointment. PHYSICAL EXAMINATION: GENERAL: This is a well-developed, well-nourished class 1 obese 43-year-old female who appears her stated age, placing her current pain score at 4-5/10 today. HEENT: Normocephalic, atraumatic. Extraocular eye muscles are intact. Mucous membranes are moist. ABDOMEN: Complains of tenderness in her lower abdomen and pelvic area. Denies nausea. EXTREMITIES: No clubbing, no cyanosis, no edema. She has tenderness in her left leg that radiates from her lower back following the L4-L5 and L5-S1 dermatomal distribution. ASSESSMENT: 1. Chronic abdominal pain. 2. Chronic pelvic pain. 3. Fibromyalgia. 4. Chronic intractable pain. 5. Lumbar radiculopathy from recent fall. 6. Complex medical management under terms of written opioid agreement. We reviewed the fact that opiate medications are being used to provide analgesia adequate to support activities of daily living, not attempting to achieve a specific pain score on the 0-10 Visual Analog Scale. The current opiate medications are providing sufficient analgesia to allow the patient to participate in activities of daily living. The patient is not exhibiting any aberrant behavior suggestive of drug diversion. The patient is not having any adverse reactions to medications. The patient is not suffering from daytime somnolence or mental acuity changes. The patient is managing opiate-induced constipation with appropriate higd-frn-douqozy agents and dietary considerations. The patient was counseled on concern for caution with operating a motor vehicle while using opiate medications. PLAN: 1. We discussed treatment options with the patient today. The patient finds her medications beneficial in controlling her pain. Denies any side effects or complications. We will refill her hydrocodone 7.5/325, #90, for today for an [address] [place] [address] PAIN MANAGEMENT CONSULTATION Name: MAYUR GIFFORD ZAINA Room #: REG [facility] M.R.#: [id number] Admission: 03/18/19 Attend Phys: Mayur Taveras Discharge: Date of : 71 Report #: [id number] 8-week. This does place her at 22 morphine mEq according to the CDC guidelines. 2. We will fill her Lyrica 150 mg b.i.d., #60, with 2 additional refills. She finds generic Lyrica has been beneficial in controlling her pain. 3. I have offered to prescribe her Flexeril once her prescription expires from Dr. Woo. She does take these on a sparingly basis. I encouraged her that that is not a medication we want her taking daily with the interaction with her hydrocodone and her benzodiazepine. The patient verbalizes understanding. She is not needing that script today. 4. I encouraged the patient to continue her physical therapy and chiropractor to hopefully continue recovering from her fall. I encouraged heat, ice and stretching at home. 5. The patient is seen today in collaboration with Dr. Urban Wooten. <ELECTRONICALLY SIGNED> By: Mayur Taveras 03/19/19 1612 [id number] Mayur Taveras /nt
== END ==
LOC: PAIN 07:09
DX: R10.9 Unspecified abdominal pain (principal); R10.2 Pelvic and perineal pain; M79.7 Fibromyalgia; G89.4 Chronic pain syndrome; M54.16 Radiculopathy, lumbar region; Z79.891 Long term (current) use of opiate analgesic

== ENCOUNTER → 2019-06-10 | Outpatient (CLI) | payer OTHER ==
[~2019-06-10] VITALS: Ht 160 cm; Wt 91.9 kg
[2019-06-10 10:47] VITALS: BP 98/69
--- NOTE | 2019-06-10 11:00 | NUR ---
Pain Clinic Assessment: 1. History of Osteoarthritis: Not Applicable History of Rheumatoid Arthritis: Not Applicable 2. Height: 5 ft. 3 in. 160.0 cm. Weight: 202.6 lb. oz. 91.899 kg. Patient's BMI: 35.9 3. Vital Signs: BP: 98/69 Pulse: 97 Resp: 20 Temp: 02 Sat: 100 ECG Mon: 4. Pain Intensity: 7 5. Fall Risk: Dizziness: Y Needs help standing or walking: N Fallen in the last 3 months: N Fall risk comments: 6. Patient on Blood Thinner: None 7. History of Hypertension: N 8. Opioid Therapy greater than 6 weeks: Y Opiate Contract Signed: 11/29/15 9. Risk Assessment Tool Provided: MODERATE RISK 7 10. Functional Assessment Tool: 11. Recreational Drug Use: Never Drug Type: Tobacco Use: Never Smoker Tobacco Type: Amount or Packs/day: How Many Years: Alcohol Use: No Frequency: Quant:
--- NOTE | 2019-06-12 08:39 | HPC ---
[facility] [address] [place] [address] PAIN MANAGEMENT CONSULTATION Name: BALTAMAYUR LOPEZ ZAINA Room #: REG [facility] M..#: [id number] Admission: 06/10/19 Attend Phys: Mayur Taveras Discharge: Date of : 71 Report #: [id number] THIS REPORT FOR: cc: Vilma Boyer MD,Mayur Garcia MD ~ CC: Mayur Boyer DATE OF SERVICE: 06/10/2019 HISTORY OF PRESENT ILLNESS: This is a 43-year-old female who returns to the pain clinic today for a refill of her medications that she uses to help treat her ongoing abdominal pain and left leg pain. Today, she is reporting a pain score of 2 out of 10, but rating a pain score of 7/10 in her head. She reports that since March, she has been having migraine headaches. Headache is in various parts of her head today. She reports it is a knife-like feeling behind her left eye. She is scheduled to see a neurologist on 07/06/2019. She is taking no migraine medications at this present time. The patient's chronic pain generators of her abdomen, pelvic and left leg are worse with eating and prolonged walking. She feels the medication that she has been taking is very beneficial in controlling that. She denies any problems with constipation as long as she eats a well-balanced diet and drinks plenty of liquids and is requesting refills of her hydrocodone and Lyrica today. ALLERGIES: CONTRAST DYE, OXYCODONE, NUBAIN, DARVOCET, BENTYL, TRAMADOL, EFFEXOR, KEFLEX, IMIPRAMINE, MORPHINE, BELLADONNA, BIAXIN, GABAPENTIN, BUTRANS. MEDICATION LIST: Lyrica 150 mg b.i.d., hydrocodone 7.5/325 p.r.n., Senokot, Flexeril once daily, Flonase, Zyrtec, Xanax 0.5 mg q.i.d. p.r.n., digestive enzyme, probiotic and Desyrel. PQRS: 1. She denies any osteo or rheumatoid arthritis. 2. Height is 5 feet 3 inches, weight is 202, BMI is 35. 3. Vital signs 98/69, pulse is 97, respirations 20, oxygen sat is 100. 4. Pain score is 7/10. 5. Complains of slight dizziness, does not need help walking or standing, has not fallen in the last 3 months. 6. Pain score is 2/10 and 7/10 in her head. 7. Denies blood thinners or hypertension medicines. 8. Opioid therapy is greater than 6 weeks; therefore, an opioid signed contract is on the chart. Risk assessment is moderate. Functional assessment is 70. 9. Recreational drug use, she denies. She is not a smoker and does not drink alcohol. [address] [address] PAIN MANAGEMENT CONSULTATION Name: BALTAMAYUR ZAINA Room #: REG [facility]#: [id number] Admission: 06/10/19 Attend Phys: Mayur Taveras Discharge: Date of : 71 Report #: [id number] According to the prescription monitoring system, patient is filling appropriately. She is due to fill her medications next week by Dr. Urban Wooten. According to the CDC guidelines, her morphine mEq per day is 22. We will collect a random drug screen on this patient today. PHYSICAL EXAMINATION: GENERAL: This is a well-developed, well-nourished class 1 obese 43-year-old female who appears her stated age, placing her current pain score from 2-7/10 today. HEENT: Normocephalic, atraumatic. Extraocular eye muscles are intact. Mucous membranes are moist, knife-like feeling per patient report behind her left eye. The patient is wearing sunglasses and the room is darkly lit. ABDOMEN: She has tenderness in her lower quadrants of her abdomen that radiates into her pelvic area. MUSCULOSKELETAL: The patient has tenderness in her lumbosacral region that radiates into her left leg following the L4-L5 and L5-S1 dermatomal distribution. Muscle strength is symmetrical and equal at 5/5 in her lower extremities. ASSESSMENT: 1. Chronic abdominal pain. 2. Chronic pelvic pain. 3. Fibromyalgia. 4. Chronic intractable pain. 5. Lumbar radiculopathy. 6. Complex medical management under terms of written opioid agreement. 7. Headache. We reviewed the fact that opiate medications are being used to provide analgesia adequate to support activities of daily living, not attempting to achieve a specific pain score on the 0-10 Visual Analog Scale. The current opiate medications are providing sufficient analgesia to allow the patient to participate in activities of daily living. The patient is not exhibiting any aberrant behavior suggestive of drug diversion. The patient is not having any adverse reactions to medications. The patient is not suffering from daytime somnolence or mental acuity changes. The patient is managing opiate-induced constipation with appropriate qkbu-lif-krsjzsq agents and dietary considerations. The patient was counseled on concern for caution with operating a motor vehicle while using opiate medications. A physical exam was performed and the patient's functional status was evaluated. All patients with back pain were advised against the bed rest greater than 4 days and were advised to return to normal activities. Pain score assessment was noted and the treatment plan was reviewed with the patient. All current medications, both prescribed and OTC were reviewed and reconciled on the [facility] [address] [place] [address] PAIN MANAGEMENT CONSULTATION Name: MAYUR GIFFORD ZAINA Room #: REG CL M..#: [id number] Admission: 06/10/19 Attend Phys: Mayur Taveras Discharge: Date of : 71 Report #: [id number] electronic medical record. Tobacco screening was accomplished and smoking cessation was advised when indicated. BMI was noted and diet/exercise modification was recommended for all patients following outside normal parameters. I reviewed with the patient today their responsibilities to safeguard prescription medications, reviewed their responsibility to utilize medications only as prescribed by the physician. They are to seek and receive pain medications only from 1 physician group ( [facility]). They are to use 1 pharmacy and keep the clinic informed if they change pharmacies. Their responsibilities include making followup visits in a timely fashion and to avoid abrupt discontinuation of medication usage. Their responsibilities further include bringing their medications (bottles from the pharmacy with residual pills) to the visit for possible confirmation of pill counts and the patient understands it is their responsibility to submit to random drug screens to ensure both that the medications prescribed are present, and that no other controlled substances are present. All prescriptions provided today were generated electronically. PLAN: 1. We discussed treatment options with the patient today. At her last visit, we discussed that her psychiatrist is retired and he had been writing her Flexeril. I explained to her that we would take this medication over for her. I will prescribe one tablet a day. We will send a script for #90 pills. This will last her 3 months. The patient verbalizes understanding not to over utilize this medication. 2. We will refill her hydrocodone 7.5/325, #90, for today for an 8-week release. These will be sent electronically by Dr. Urban Wooten as well as her Lyrica 150 mg b.i.d., 60 with 2 additional refills. The patient instructed not to take these medications with her benzodiazepine as there is risk of opioids and benzodiazepines by taking together. The patient verbalizes understanding. 3. The patient reports she is seeing her new psychiatrist on the of this month. It will be Dr. Montse Mo and she is seeing a neurologist on 07/06/2019 for her migraine headaches. 4. The patient is seen in collaboration with Dr. Urban Wooten today. <ELECTRONICALLY SIGNED> By: Mayur Taveras 06/12/19 0839 [id number] Mayur Taveras /nt
== END ==
LOC: PAIN 06:45
DX: R10.9 Unspecified abdominal pain (principal); R10.2 Pelvic and perineal pain; M79.7 Fibromyalgia; M54.16 Radiculopathy, lumbar region; G89.4 Chronic pain syndrome; Z79.891 Long term (current) use of opiate analgesic

== ENCOUNTER → 2019-08-18 | Outpatient (CLI) | payer OTHER ==
[~2019-08-18] VITALS: Ht 160 cm; Wt 94.4 kg
[2019-08-18 09:23] VITALS: BP 104/64
--- NOTE | 2019-08-18 09:36 | NUR ---
Pain Clinic Assessment: 1. History of Osteoarthritis: Not Applicable History of Rheumatoid Arthritis: Not Applicable 2. Height: 5 ft. 3 in. 160.0 cm. Weight: 208.2 lb. oz. 94.439 kg. Patient's BMI: 36.9 3. Vital Signs: BP: 104/64 Pulse: 82 Resp: 16 Temp: 02 Sat: 100 ECG Mon: 4. Pain Intensity: 1-2 5. Fall Risk: Dizziness: N Needs help standing or walking: N Fallen in the last 3 months: N Fall risk comments: 6. Patient on Blood Thinner: None 7. History of Hypertension: N 8. Opioid Therapy greater than 6 weeks: Y Opiate Contract Signed: 11/29/15 9. Risk Assessment Tool Provided: MODERATE RISK 7 10. Functional Assessment Tool: 11. Recreational Drug Use: Never Drug Type: Tobacco Use: Never Smoker Tobacco Type: Amount or Packs/day: How Many Years: Alcohol Use: No Frequency: Quant:
--- NOTE | 2019-08-18 15:13 | HPC ---
[facility] [address] [address] PAIN MANAGEMENT CONSULTATION Name: MAYUR GIFFORD Room #: REG [facility]..#: [id number] Admission: 08/18/19 Attend Phys: Mayur Taveras Discharge: Date of : 71 Report #: [id number] THIS REPORT FOR: cc: Vilma Boyer MD, Jane T. MD Hocker, Amanda CNS ~ CC: Urban Wooten DO DATE OF SERVICE: 08/18/2019 CHIEF COMPLAINT: Abdominal pain. HISTORY OF PRESENT ILLNESS: As you know, this is a very pleasant 43-year-old female who returns to the pain clinic today for refill of her opioid medications that she uses to help treat her ongoing abdominal and pelvic pain. Today, she is reporting her pain score of 1-2. States that has been very well controlled lately, requiring an average of two hydrocodone tablets a day. Today, she is reporting it is an aching, sharp, burning pain at times, worse with eating. The medication as well as rest has been beneficial. Since the COVID virus has been going on, she has been at home, not undergoing much stress and monitoring what she eats more closely and has not had any flares recently. The patient does report she manages her constipation with Senokot on a daily basis. The patient does report she has recently started seeing, Kathrine Mo, who is her new psychologist in [place] since Dr. Renae is no longer seeing outpatients. She reports that we will start seeing medications filled on the prescription monitoring from that physician next month as her refills from Dr. Renae have just read out. ALLERGIES: CONTRAST DYE, OXYCODONE, NUBAIN, DARVOCET, BENTYL, TRAMADOL, EFFEXOR, KEFLEX, IMIPRAMINE, MORPHINE, OPIUM, BIAXIN, GABAPENTIN, BUTRANS. MEDICATIONS: Lyrica 150 mg b.i.d., hydrocodone 7.5/325 p.r.n., Flexeril, Senokot, Zyrtec, alprazolam, digestive enzymes, probiotic, Zofran p.r.n., and trazodone. PQRS: 1. She has denied osteo or rheumatoid arthritis. 2. Height is 5 feet 3 inches, weight is 208, BMI is 36. 3. Vital signs 104/64, pulse is 82, respirations 16, oxygen sat is 100. 4. Pain score 1-2. 5. Denies dizziness, does not need help walking or standing, has not fallen in the last 3 months. 6. The patient is not on any blood thinners or medicine for hypertension. 7. Opioid therapy is greater than 6 weeks; therefore, an opioid signed contract is on the chart. Risk assessment is moderate. Functional assessment is . [address] [address] PAIN MANAGEMENT CONSULTATION Name: MAYUR GIFFORD ZAINA Room #: REG CL M..#: [id number] Admission: 08/18/19 Attend Phys: Mayur Taveras Discharge: Date of : 71 Report #: [id number] 8. Recreational drug use, she denies. She is not a smoker and does not drink alcohol. According to the prescription monitoring system, she recently filled her prescription in July and is due to fill these again today. Her morphine mEq according to the CDC guidelines is 22.5. The patient does take alprazolam as well as her opioids and we did discuss the opioid, benzodiazepine interaction. The patient has been stable on both these meds for quite some time. There is a recent drug screen on the chart that was performed at her last visit that is appropriate for all of her medications. PHYSICAL EXAMINATION: GENERAL: This is alert and orientated, well-developed, well-nourished class 1 morbidly obese 43-year-old female who appears her stated age, placing her pain score today at 1-2. HEENT: Normocephalic, atraumatic. Extraocular eye muscles are intact. Mucous membranes are moist. ABDOMEN: She has tenderness in her lower quadrants of her abdomen that radiates into her pelvic area. ASSESSMENT: 1. Chronic abdominal pain. 2. Chronic pelvic pain. 3. Fibromyalgia. 4. Chronic intractable pain. 5. Complex medical management under terms of written opioid agreement. We reviewed the fact that opiate medications are being used to provide analgesia adequate to support activities of daily living, not attempting to achieve a specific pain score on the 0-10 Visual Analog Scale. The current opiate medications are providing sufficient analgesia to allow the patient to participate in activities of daily living. The patient is not exhibiting any aberrant behavior suggestive of drug diversion. The patient is not having any adverse reactions to medications. The patient is not suffering from daytime somnolence or mental acuity changes. The patient is managing opiate-induced constipation with appropriate veno-vcn-fafiltb agents and dietary considerations. The patient was counseled on concern for caution with operating a motor vehicle while using opiate medications. PLAN: 1. We discussed treatment options with the patient today. The patient is doing quite well on her current regimen today with her quite a low pain score of 1-2. The patient reports that she is taking less hydrocodone lately than she has in the past, still requiring at least 2 a day, bad days she does require 3. We will continue these medications and they will be sent electronically by Dr. Urban Wooten for 3 months to her pharmacy as well as her Lyrica 150 mg b.i.d., [facility] [address] [place] [address] PAIN MANAGEMENT CONSULTATION Name: BALTAMAYUR ZAINA Room #: REG CLI [facility].#: [id number] Admission: 08/18/19 Attend Phys: Mayur Taveras Discharge: Date of : 71 Report #: [id number] #60 with 2 additional refills. She finds these medicines beneficial for her fibromyalgia. 2. The patient is seen today in collaboration with Dr. Urban Wooten. The patient will return in 2 months. <ELECTRONICALLY SIGNED> By: Mayur Taveras 08/18/19 1513 [id number] 1141 Mayur Taveras /nt
== END ==
LOC: PAIN 06:47
DX: R10.9 Unspecified abdominal pain (principal); M79.7 Fibromyalgia; R10.2 Pelvic and perineal pain; G89.29 Other chronic pain; F11.20 Opioid dependence, uncomplicated; Z88.1 Allergy status to other antibiotic agents; Z88.2 Allergy status to sulfonamides; Z88.8 Allergy status to other drugs, medicaments and biological substances; Z91.048 Other nonmedicinal substance allergy status; Z79.899 Other long term (current) drug therapy

== ENCOUNTER → 2019-11-25 | Outpatient (CLI) | payer OTHER ==
[~2019-11-25] VITALS: Ht 162.6 cm; Wt 98.1 kg
[2019-11-25 08:03] VITALS: BP 120/78
--- NOTE | 2019-11-25 08:09 | NUR ---
Pain Clinic Assessment: 1. History of Osteoarthritis: Not Applicable History of Rheumatoid Arthritis: Not Applicable 2. Height: 5 ft. 4 in. 162.6 cm. Weight: 216.2 lb. oz. 98.068 kg. Patient's BMI: 37.1 3. Vital Signs: BP: 120/78 Pulse: 67 Resp: 18 Temp: 02 Sat: 100 ECG Mon: 4. Pain Intensity: 1-2 5. Fall Risk: Dizziness: Y Needs help standing or walking: N Fallen in the last 3 months: N Fall risk comments: 6. Patient on Blood Thinner: None 7. History of Hypertension: N 8. Opioid Therapy greater than 6 weeks: Y Opiate Contract Signed: 11/29/15 9. Risk Assessment Tool Provided: MODERATE RISK 7 10. Functional Assessment Tool: 11. Recreational Drug Use: Never Drug Type: Tobacco Use: Never Smoker Tobacco Type: Amount or Packs/day: How Many Years: Alcohol Use: No Frequency: Quant:
--- NOTE | 2019-11-25 14:26 | HPC ---
[facility] [place] [address] PAIN MANAGEMENT CONSULTATION Name: MAYUR GIFFORD Room #: REG [facility] M..#: [id number] Admission: 11/25/19 Attend Phys: Mayur Taveras Discharge: Date of : 71 Report #: [id number] THIS REPORT FOR: cc: Vilma Boyer MD, Jane T. MD Hocker, Amanda CNS ~ DATE OF SERVICE: 11/25/2019 CHIEF COMPLAINT: Abdominal pain and fibromyalgia. HISTORY OF PRESENT ILLNESS: As you know, this is a pleasant 44-year-old female who returns to the pain clinic today for treatment of her ongoing abdominal pain and pelvic pain as a result of interstitial cystitis. She does also suffer from fibromyalgia. We provide her opioid medications that she finds very beneficial. Today, she is reporting a pain score of 1-2 stating her pain is very controlled, though recently she did have a flare that lasted several days. Normally, her pain is an aching, constant, but occasionally it may be sharp and burning. She feels that eating does occasionally flare her pain. The medication as well as resting are very beneficial. She does complain of occasional constipation, though she uses some fwzn-vio-fvtgqqd medications. The patient had called earlier in the month asking if the Lyrica may decrease her blood pressure, her primary care doctors were slightly worried. Dr. Urban Wooten had reiterated that it does not lower her blood pressure that is not a common complication. Her blood pressure today is 120/78. Evidently, they are working her up for a possible TIA that she experienced last March. She does have occasional dizziness when she stands in the morning that does subside as the day progresses. ALLERGIES: CONTRAST DYE, OXYCODONE, NUBAIN, DARVOCET, BENTYL, TRAMADOL, EFFEXOR, KEFLEX, IMIPRAMINE, MORPHINE, OPIUM, BELLADONNA, BIAXIN, GABAPENTIN, and BUTRANS. CURRENT MEDICATIONS: Flexeril p.r.n., Lyrica 150 mg b.i.d., hydrocodone 7.5/325 p.r.n., Senokot, Zyrtec, Xanax, digestive enzymes, probiotic, Zofran, and trazodone. PQRS: 1. She denies osteo or rheumatoid arthritis. 2. Height is 5 feet 4 inches, weight is 216, BMI is 37. This is an increase of 8 pounds since her last visit in August. 3. Vital signs 120/78, pulse is 67, respirations 18, oxygen sat is 100. 4. Pain score is 1-2. 5. Fall risk, does complain of slight dizziness at times. Denies needing assistance for walking and has not fallen in the last [address] [address] PAIN MANAGEMENT CONSULTATION Name: MAYUR GIFFORD ZAINA [id number] Admission: 11/25/19 Attend Phys: Mayur Taveras Discharge: Date of : 71 Report #: [id number] 6. The patient is not on any blood thinners or medicines for hypertension. Opioid therapy is greater than 6 weeks; therefore, an opioid signed contract is on the chart. Risk assessment is moderate. Functional assessment is 29/70. 7. Recreational drug use, she denies. She is not a smoker and does not drink alcohol. According to the prescription monitoring system, the patient is filling appropriately in a timely fashion. Her morphine mEq according to the CDC guidelines are 22 MMEs. There is a drug screen on the chart that is appropriate for her medications as well. PHYSICAL EXAMINATION: GENERAL: This is alert and orientated, well-developed, well-nourished class 1 morbidly obese 44-year-old female who appears her stated age, placing her current pain score 1-2. HEENT: Normocephalic, atraumatic. Extraocular eye muscles are intact. She is wearing a mask. ABDOMEN: She has tenderness in her lower quadrants of her abdomen that occasionally radiate into her pelvic area. She does have palpatory tenderness over her paraspinal musculature in her lower lumbar spine and thoracic areas. She has tenderness to palpation of 18/18 tender points, indicating of fibromyalgia. ASSESSMENT: 1. Chronic abdominal pain. 2. Chronic pelvic pain. 3. Fibromyalgia. 4. Chronic intractable pain. 5. Complex medical management under terms of written opioid agreement. We reviewed the fact that opiate medications are being used to provide analgesia adequate to support activities of daily living, not attempting to achieve a specific pain score on the 0-10 Visual Analog Scale. The current opiate medications are providing sufficient analgesia to allow the patient to participate in activities of daily living. The patient is not exhibiting any aberrant behavior suggestive of drug diversion. The patient is not having any adverse reactions to medications. The patient is not suffering from daytime somnolence or mental acuity changes. The patient is managing opiate-induced constipation with appropriate yvkc-sil-ksgzizp agents and dietary considerations. The patient was counseled on concern for caution with operating a motor vehicle while using opiate medications. PLAN: 1. We discussed treatment options with the patient today. The patient finds her medications very beneficial. I will send her Flexeril 10 mg, #90 with one additional refill. The patient does use this when her fibromyalgia is increased [address] [place] [address] PAIN MANAGEMENT CONSULTATION Name: MAYUR GIFFORD ZAINA Room #: REG [facility] M.R.#: [id number] Admission: 11/25/19 Attend Phys: Mayur Taveras Discharge: Date of : 71 Report #: [id number] and her muscles are tight. 2. We will have Dr. Urban Wooten refill her Lyrica 150 mg b.i.d., #60 with 2 additional refills and her hydrocodone 7.5/325, #90. This will be given for today, 4-week and 8-week release. 3. We did discuss the patient's weight. The patient reports she has been walking, but continues to gain weight. Per our records, she weighed 192 in March. Today, she weighs 216. This is a significant increase in 7 months. I encouraged the patient to watch her diet more closely as well as increasing her walking regimen. The patient verbalizes understanding. 4. The patient will return in 3 months, patient was seen in collaboration with Dr Wooten today. <ELECTRONICALLY SIGNED> By: Mayur Taveras 11/25/19 1426 [id number] 09 Mayur Taveras /nt
== END ==
LOC: PAIN 06:51
PROVIDERS: ATTEND Clinical Nurse Specialist Adult Health
DX: G89.29 Other chronic pain (principal); R10.2 Pelvic and perineal pain; R10.9 Unspecified abdominal pain; M79.7 Fibromyalgia; Z88.8 Allergy status to other drugs, medicaments and biological substances; Z68.37 Body mass index [BMI] 37.0-37.9, adult; Z79.891 Long term (current) use of opiate analgesic; Z79.899 Other long term (current) drug therapy

== ENCOUNTER → 2020-03-02 | Outpatient (CLI) | payer OTHER ==
--- NOTE | 2020-03-03 09:15 | HPC ---
[facility] [place] [address] [place] [address] PAIN MANAGEMENT CONSULTATION Name: MAYUR GIFFORD Room #: REG [facility] M..#: [id number] Admission: 03/02/20 Attend Phys: Mayur Taveras Discharge: Date of : 71 Report #: [id number] THIS REPORT FOR: cc: Vilma Boyer MD, Jane T. MD Hocker, Amanda CNS ~ CC: Mayur Wooten DO DATE OF SERVICE: 03/02/2020 This is a telemed appointment speaking with via audiov[employer]ual [employer] due to the patient's exposure to COVID from 10:45-11:05. CHIEF COMPLAINT: Abdominal pain and fibromyalgia. HISTORY OF PRESENT ILLNESS: This is a pleasant female who is well known to the pain clinic that I am speaking with via [employer] for a telemed appointment due to her exposure to COVID. She reports having several symptoms of chills, sweats, entire body aching and feeling dizzy. She said food does not taste the same, but she just received her COVID test results and did show negative. She reports though she continues to feel bad like she has the flu, so therefore, we are seeing her on [employer] today. She does report a pain score slightly elevated today at 4-5 because of her general aches and pains. She does suffer from fibromyalgia as well as her interstitial cystitis and pelvic pain. Normally, her pain is very well controlled with her hydrocodone and Lyrica. Today, she is requesting refills of those medications. She reports a burning sensation as well as her general aches and pains. ALLERGIES: CONTRAST DYE, OXYCODONE, NUBAIN, DARVOCET, BENTYL, TRAMADOL, EFFEXOR, KEFLEX, IMIPRAMINE, MORPHINE, OPIUM, BELLADONNA, BIAXIN, GABAPENTIN, AND BUTRANS. CURRENT LIST OF MEDICATIONS: Flexeril p.r.n., Lyrica 150 mg b.i.d., hydrocodone 7.5/325, p.r.n. Senokot, Zyrtec, Xanax, digestive enzymes, probiotic, Zofran, and trazodone. PQRS: 1. She denies any osteo or rheumatoid arthritis. 2. Height and weight are deferred due to a telemed appointment. Pain score is 4/10. 3. Fall risk, does not need any assistance with ambulation. Has slight dizziness today and has not fallen in the last 3 months. 4. Not on any blood thinners or medicines for hypertension. 5. Opioid therapy is greater than 6 weeks; therefore, an opioid signed contract is on the chart. Risk assessment is moderate. Functional assessment is . [address] [address] PAIN MANAGEMENT CONSULTATION Name: BALTAMAYUR ZAINA Room #: REG CLI [facility]#: [id number] Admission: 03/02/20 Attend Phys: Myaur Taveras Discharge: Date of : 71 Report #: [id number] 6. Recreational drug use, she denies. She is not a smoker and does not drink alcohol. According to the prescription monitoring system, the patient is filling appropriately from Dr. Wooten, filling in a timely fashion. Her drug screen is appropriate for her medications. Her morphine mEq is 21 MMEs per day. Physical exam is a review of systems due to a telemed appointment. The patient is alert and orientated, answering all my questions today, slightly pale in appearance. She reports feeling dizzy and general aches and pains with abdominal cramping as well in her pelvic and lower abdominal area. ASSESSMENT: 1. Chronic abdominal pain. 2. Chronic pelvic pain. 3. Fibromyalgia. 4. Chronic intractable pain. 5. Exposure to COVID, recent negative test. 6. Complex medical management under terms of written opioid agreement. PLAN: 1. We discussed treatment options with the patient today. We are doing a telemed appointment due to her exposure to COVID. The patient states she is being very careful, only going to doctor's appointments, though she does attend choir rehearsal where they do wear a mask and do separate, but she does do that twice a week. That is possibly her area of exposure, though her first COVID test has come back negative. She does have several symptoms that do sound like she possibly has COVID. I encouraged her to get an antibody test in a month after she is feeling better to see if she has developed antibodies and she had a false negative test. 2. We will continue her on her hydrocodone 7.5/325 three times a day. These will be sent electronically by Dr. Urban Wooten to her pharmacy as well as her Lyrica 150 mg b.i.d. She does find it beneficial in helping with her fibromyalgia pain. This will be for 60 with 2 additional refills. 3. The patient does continue her Flexeril at bedtime and is not needing that medication today. We will have the patient return in 3 months in the clinic. The patient is seen today for this telemed appointment in collaboration with Dr. Urban Wooten. <ELECTRONICALLY SIGNED> By: Mayur Taveras 03/03/20 0915 [id number] Mayur Taveras /marcelino
== END ==
LOC: TELEPC 06:51 → PAIN 08:50
PROVIDERS: ATTEND Clinical Nurse Specialist Adult Health
DX: R10.9 Unspecified abdominal pain (principal); M79.7 Fibromyalgia

== ENCOUNTER → 2020-06-01 | Outpatient (CLI) | payer OTHER ==
[~2020-06-01] VITALS: Ht 162.6 cm; Wt 100.2 kg
--- NOTE | ~2020-06-01 | HPC ---
[facility] [place] [place] [address] PAIN MANAGEMENT CONSULTATION Name: MAYUR GIFFORD Room #: REG [facility] M.R.#: [id number] Admission: 06/01/20 Attend Phys: Urban Wooten DO Discharge: Date of : 71 Report #: [id number] THIS REPORT FOR: cc: Vilma Boyer MD, Jane T. MD Johnson, James E. DO ~ DATE OF SERVICE: 06/01/2020 REFERRING PHYSICIAN: Dr. Connie Gonzalez CHIEF COMPLAINT: Abdominal pain and generalized body pain. HISTORY OF PRESENT ILLNESS: As you know, the patient is a 44-year-old female known to the pain clinic for fibromyalgia, generalized in its presentation as well as chronic abdominal pain. The patient has been on opioid medication for an extended period of time, reporting continued analgesic benefit with its use. She was started on an opioid medication back in 2010 and we have continued the patient on that dosing of therapy. She returns today in followup visit, stating that her pain is exacerbated with changes in weather and activities, which is consistent with her fibromyalgia. The abdominal pain is intermittent in nature. She returns today in followup visit requesting refill on medications. She denies side effects of sleepiness, disorientation, confusion, mental slowing with use of therapy. ALLERGIES: CONTRAST AGENT, OXYCODONE, NUBAIN, DARVOCET, BENTYL, TRAMADOL, EFFEXOR, KEFLEX, IMIPRAMINE, MORPHINE, OPIUM, BELLADONNA, BIAXIN, GABAPENTIN and BUTRANS. CURRENT MEDICATIONS: Hydrocodone 7.5/325 b.i.d., hydrocodone 7.5/325 t.i.d., pregabalin 150 mg 2 tabs p.o. at bedtime, cyclobenzaprine 10 mg p.r.n., Senokot 8.6 mg once a day, Zyrtec 10 mg per day, alprazolam 0.5 mg 1 tab p.o. at bedtime, digestive enzymes 1 tab per day, lactobacillus 1 tab per day, ondansetron 4 mg p.r.n., trazodone 150 mg p.o. at bedtime. SOCIAL HISTORY: The patient denies tobacco use. Denies IV or illicit drug use. Denies any chronic alcohol use. She is unaccompanied at today's visit. IMAGING: No new imaging available. PQRS: The patient has no known osteoarthritis. No rheumatoid arthritis. She is placing current pain score of 5/10. She is not a fall risk, has not had a fall in last 3 months. She is not on blood thinners, but is treated for hypertension. She is on chronic opioids and has a moderate to high risk of opioid addiction. Pain impact is rated at 29/70, moderate interference of daily activities secondary to pain. [address] [address] PAIN MANAGEMENT CONSULTATION Name: MAYUR GIFFORD [facility] [id number] Admission: 06/01/20 Attend Phys: Urban Wooten DO Discharge: Date of : 71 Report #: [id number] PHYSICAL EXAMINATION: VITAL SIGNS: Blood pressure 105/64, pulse 91, respiratory rate 16 and unlabored. The patient is 99% on room air. Height 5 feet 4 inches tall, weight 220.8 pounds, BMI calculated 37.9. GENERAL: Well-developed, well-nourished, well-hydrated, morbidly obese 44-year-old female, appearing stated age, pain is rated today at 4/10. HEENT: Normocephalic, atraumatic. Pupils are round, and responsive. The patient's speech is normal. She is wearing a facemask in compliance with COVID-19 regulations. EXTREMITIES: Show no clubbing, no cyanosis, and no appreciable edema. MUSCULOSKELETAL: Tender to palpation at 16 of 18 tender points indicative for fibromyalgia. ASSESSMENT: 1. Chronic abdominal pain. 2. Chronic pelvic pain. 3. Fibromyalgia. 4. Complex medication management with controlled substances. 5. Chronic intractable pain. PLAN: 1. The patient returns today in followup visit where we have had a long discussion with the patient in regards to continued opioid medication coverage. The patient has noted an increase in the cost of her opioids over the past couple of months, which is consistent with how insurance companies are now no longer covering these medications as they classified them as more of a luxury agent and not as a life-saving or life-preserving type of medication. She has also seen that her alprazolam is no longer being covered by her insurance and as again this does not fit in the category of life-saving or life-altering medication. We discussed with the patient that opioid medications will likely tend to head that way as well and the coverage for these medications may be quite difficult if not impossible in the near future. We discussed this with the patient today. She wishes to remain on the medication at current dosing with the understanding that they may ultimately be discontinued. 2. I reviewed with the patient today their responsibilities to safeguard prescription medications, reviewed their responsibility to utilize medications only as prescribed by the physician. They are to seek and receive pain medications only from 1 physician group ( [facility]). They are to use 1 pharmacy and keep the clinic informed if they change pharmacies. Their responsibilities include making followup visits in a timely fashion and to avoid abrupt discontinuation of medication usage. Their responsibilities further include bringing their medications (bottles from the pharmacy with residual pills) to the visit for possible confirmation of pill counts and the patient understands it is their responsibility to submit to random drug screens to ensure both that the medications prescribed are present, and that no other controlled substances are present. All prescriptions provided today were [facility] [address] [place] [address] PAIN MANAGEMENT CONSULTATION Name: MAYUR GIFFORD ZAINA Room #: REG CLI [place]#: [id number] Admission: 06/01/20 Attend Phys: Urban Wooten DO Discharge: Date of : 71 Report #: [id number] generated electronically. 3. The patient was provided prescription of hydrocodone 7.5/325 one tab every 8 hours p.r.n. for pain. I have given the patient #90 tablets to release today, 4 weeks from today and 8 weeks from today, 3 months' worth of medication. All prescriptions provided via e-scribe to local pharmacy. 4. The patient was provided prescription of Lyrica 150 mg dose 1 tab twice a day, #60 with 2 refills, 3 months' worth of medication. Prescription sent via e-scribe to local pharmacy. 5. The patient was provided refill prescription of cyclobenzaprine 10 mg dose 1 tab p.o. t.i.d. p.r.n. muscle spasms, #90 with 2 refills, 3 months' worth of medication. The patient was advised to utilize this medication only when pain is secondary to muscle spasming, not to take the medication prophylactically. 6. We plan to see the patient back in followup visit in 3 months. At that time, review efficacy of medication and to discuss continued treatment. 7. The patient will submit to urine drug screen as part of our monitoring protocol based on her opioid contract. The patient can contact our clinic next week for the findings. She reports that we will find no concerning findings. By: [id number] Urban Wooten DO /nt
[2020-06-01 12:51] VITALS: BP 105/64
--- NOTE | 2020-06-01 13:08 | NUR ---
Pain Clinic Assessment: 1. History of Osteoarthritis: Not Applicable History of Rheumatoid Arthritis: Not Applicable 2. Height: 5 ft. 4 in. 162.6 cm. Weight: 220.8 lb. oz. 100.154 kg. Patient's BMI: 37.9 3. Vital Signs: BP: 105/64 Pulse: 91 Resp: 16 Temp: 02 Sat: 99 ECG Mon: 4. Pain Intensity: 4 5. Fall Risk: Dizziness: N Needs help standing or walking: N Fallen in the last 3 months: N Fall risk comments: 6. Patient on Blood Thinner: None 7. History of Hypertension: N 8. Opioid Therapy greater than 6 weeks: Y Opiate Contract Signed: 11/29/15 9. Risk Assessment Tool Provided: MODERATE RISK 7 10. Functional Assessment Tool: 11. Recreational Drug Use: Never Drug Type: Tobacco Use: Never Smoker Tobacco Type: Amount or Packs/day: How Many Years: Alcohol Use: No Frequency: Quant:
== END ==
LOC: PAIN 05-25 06:50
PROVIDERS: ATTEND Anesthesiology Pain Medicine
DX: R10.9 Unspecified abdominal pain (principal); M79.10 Myalgia, unspecified site; R10.2 Pelvic and perineal pain; G89.29 Other chronic pain; F11.20 Opioid dependence, uncomplicated; Z88.8 Allergy status to other drugs, medicaments and biological substances; Z79.899 Other long term (current) drug therapy

== ENCOUNTER → 2020-08-31 | Outpatient (CLI) | payer OTHER ==
[~2020-08-31] VITALS: Ht 162.6 cm; Wt 100.2 kg
[~2020-08-31] MED LIST changes: +CIPRO500 M1 PO
[2020-08-31 10:31] VITALS: BP 104/62
--- NOTE | 2020-08-31 10:39 | NUR ---
Pain Clinic Assessment: 1. History of Osteoarthritis: Not Applicable History of Rheumatoid Arthritis: Not Applicable 2. Height: 5 ft. 4 in. 162.6 cm. Weight: 221.0 lb. oz. 100.245 kg. Patient's BMI: 37.9 3. Vital Signs: BP: 104/62 Pulse: 106 Resp: 14 Temp: 02 Sat: 100 ECG Mon: 4. Pain Intensity: 4 HAS BEEN 10 5. Fall Risk: Dizziness: N Needs help standing or walking: N Fallen in the last 3 months: N Fall risk comments: 6. Patient on Blood Thinner: None 7. History of Hypertension: N 8. Opioid Therapy greater than 6 weeks: Y Opiate Contract Signed: 11/29/15 9. Risk Assessment Tool Provided: MODERATE RISK 7 10. Functional Assessment Tool: 11. Recreational Drug Use: Never Drug Type: Tobacco Use: Never Smoker Tobacco Type: Amount or Packs/day: How Many Years: Alcohol Use: No Frequency: Quant:
--- NOTE | 2020-09-01 09:33 | HPC ---
[facility] [place] [address] PAIN MANAGEMENT CONSULTATION Name: MAYUR GIFFORD Room #: REG [facility] M.R.#: [id number] Admission: 08/31/20 Attend Phys: Mayur Taveras Discharge: Date of : 71 Report #: [id number] THIS REPORT FOR: cc: Vilma Boyer MD, Jane T. MD Hocker, Amanda CNS ~ DOC #: [id number] cc: Urban Wooten DO DATE OF SERVICE: 08/31/2020 CHIEF COMPLAINT: Abdominal pain and general body pain, herpes zoster. HISTORY OF PRESENT ILLNESS: As you know, this is a 44-year-old female who returns to the pain clinic today for renewal of her opioid medications. Today, she is reporting a pain score slightly higher than her normal at 10/10. She reports that she is currently experiencing a urinary tract infection, which has caused increase in her abdominal and pelvic pain. She is currently taking antibiotics as she is hopeful that that will slowly relieve her pain. Overall, she believes her normal pain generator and score is 4/10 and describes her pain worse with eating and flares of her interstitial cystitis as she is having today. Overall, she believes her normal medication is beneficial in helping control her pain. The patient does report that she was diagnosed with herpes zoster by her primary care doctor. She did have a round of acyclovir for her shingles. She reports that her pain was most problematic in her right ear along her jaw and into her shoulder area. She has a few lesions still present today. The patient does report she is going to start physical therapy. As a result of her shingles, she believes that she has flared her fibromyalgia, but not utilizing her muscles and therefore she is considerable tenderness in her trapezius muscle. She will start physical therapy in about a week per her report. She believes that shingles resulted in a flare of stress, due to a niece of 26 years old recently . ALLERGIES: Please see computer for complete list of allergies, an extensive list. MEDICATIONS: Cipro 500 mg b.i.d., Lyrica 150 mg b.i.d., hydrocodone 7.5/325 p.r.n., Flexeril p.r.n., Senokot, Zyrtec, alprazolam, digestive enzymes, probiotic, Zofran, and trazodone. PQRS: 1. She has on known osteoarthritis or rheumatoid arthritis. 2. Height is 5 feet 4 inches, weight is 221. BMI is 37. 3. Vital signs: Blood pressure 104/62, pulse is 106, respirations 14, oxygen sat is 100. Pain score is 4-10 [place] [address] PAIN MANAGEMENT CONSULTATION Name: MAYUR GIFFORD ZAINA Room #: REG CLI Simona#: [id number] Admission: 08/31/20 Attend Phys: Mayur Taveras Discharge: Date of : 71 Report #: [id number] 4. Fall risk: Denies dizziness, does not need help walking or standing, has not fallen in the last three months. 5. She is not on any blood thinners or medication for hypertension. 6. Her opioid therapy is greater than six weeks; therefore, an opioid signed contract is on the chart. 7. Risk assessment is moderate. Her functional assessment is 29/70. 8. Her recreational drug use, she denies. She is not a smoker and does not drink alcohol. According to the prescription monitoring system, the patient is filling appropriately in a timely fashion. She does take a benzodiazepine and has for years from another physician that is closely monitored by a psychologist. Her morphine mEq per hydrocodone is 22 MME. We do have a urine drug screen on the chart that is appropriate for her medications as well. PHYSICAL EXAMINATION: GENERAL: This is a well-developed, well-nourished, well-hydrated, morbidly obese 44-year-old female who appears her stated age, rating her pain score a 4/10 or 10/10 depending on location today. She does have a flat affect. HEENT: Normocephalic, atraumatic. Pupils are equal, round and reactive. The patient has a face mask on. Few herpetic lesions are still present on the facial nerve on the right side radiating down the C5 dermatomal distribution as well. They are crusted over with no exudate. EXTREMITIES: No clubbing, no cyanosis, no edema. MUSCULOSKELETAL: Tenderness or palpitation in her trapezius muscles on the right. ASSESSMENT AND PLAN: 1. Chronic pelvic pain. 2. Chronic abdominal pain. 3. Fibromyalgia. 4. Complex medical management utilizing scheduled medications. 5. Recent herpetic zoster outbreak, treated with acyclovir. PLAN: 1. We discussed treatment options with the patient today. The patient finds her medications overall beneficial in decreasing her pain despite her flare of urinary tract infection for her interstitial cystitis. We will continue her on her hydrocodone 7.5/325, #90. This will be sent electronically by Dr. Wooten for today for an 8-week supply. 2. The patient did discuss outbreak of herpes zoster on her right ear and shoulder trapezius area. The patient reports it took about 3 weeks for her to be diagnosed from several different doctors. I encouraged her if she does have this outbreak again, please notify our office. We do treat shingles fairly frequently. I explained that she is on a neuropathic medication for her fibromyalgia, which would be beneficial in helping decrease the nerve pain from [facility] [address] [place] [address] PAIN MANAGEMENT CONSULTATION Name: MAYUR GIFFORD ZAINA Room #: REG [facility] M.R.#: [id number] Admission: 08/31/20 Attend Phys: Mayur Taveras Discharge: Date of : 71 Report #: [id number] shingles and the patient has had her antiviral medications. I encouraged her to consider the shingles vaccination in the future. The patient verbalized understanding. 3. The patient is to start physical therapy for increasing pain in her neck and shoulder muscles. The patient has worked with a physical therapist before. I encouraged her to be active and continue her stretching exercises at home, which does overall help her myofascial pain and hopefully decrease her overall pain generators. 4. The patient will return in 3 months or as needed. Time spent with the patient in consultation, reviewing recent studies, clinical notes, physician reports, and physical examination and correlation of findings and medical documentation to determine possible treatment options 16 minutes. Time spent preparing for appointment reviewing prescription monitoring system reports, reviewing previous records and proposed treatment options, reviewing current medications 5 minutes. Time spent preparing and sending electronic prescriptions with collaborating physician, Dr. Urban Wooten and documentation of visit and plan of treatment 5 minutes. Total time spent 26 minutes. Mayur Taveras NP /DHI <ELECTRONICALLY SIGNED> By: Mayur Taveras 09/01/20 [id number] Mayur Taveras /nt
== END ==
LOC: PAIN 08-24 08:48
PROVIDERS: ATTEND Clinical Nurse Specialist Adult Health
DX: B02.9 Zoster without complications (principal); M79.10 Myalgia, unspecified site; F11.20 Opioid dependence, uncomplicated; Z79.899 Other long term (current) drug therapy

== ENCOUNTER → 2020-11-23 | Outpatient (CLI) | payer OTHER ==
[~2020-11-23] VITALS: Ht 162.6 cm; Wt 98.5 kg
[~2020-11-23] MED LIST changes: +VALTREX 500 MG500 MG PO
--- NOTE | ~2020-11-23 | HPC ---
[facility] [place] [address] PAIN MANAGEMENT CONSULTATION Name: MAYUR GIFFORD Room #: REG [facility] M.R.#: [id number] Admission: 11/23/20 Attend Phys: Mayur Taveras Discharge: Date of : 71 Report #: [id number] THIS REPORT FOR: cc: Vilma Boyer MD, Jane T. MD Hocker, Amanda CNS ~ cc: Urban Wooten DO DATE OF SERVICE: 11/23/2020 CHIEF COMPLAINT: Abdominal pain. General aches and pains and herpes zoster. HISTORY OF PRESENT ILLNESS: This is a 45-year-old female who returns to the pain clinic today reporting that she is having another outbreak of her shingles pain. She reports recently finishing her Medrol Dosepak and is on her last day of valacyclovir. The outbreak is in the same location on her right shoulder and upper thoracic area. She had had a previous outbreak in August when we last saw her. Today, patient is also reporting a flare in her interstitial cystitis. She is awaiting urine cultures. She is complaining of significant abdominal pain today at a 6/10. She has not started any antibiotics for this flare. She describes her pain as an aching, sharp, burning sensation. It is worse with eating, movement of her shoulder as well as this flare of interstitial cystitis from her urinary tract infection. Overall, she believes the medication are beneficial as well as rest and today she is requesting refills of her medications. ALLERGIES: Please see extensive list. CURRENT MEDICATIONS: Valacyclovir, Lyrica 150 mg b.i.d., hydrocodone 7.5/325 t.i.d. p.r.n., Cipro, Flexeril, Senokot, Zyrtec, alprazolam, digestive enzymes, probiotics, Zofran p.r.n., and Desyrel. PQRS: 1. She has no known arthritic issues. Height is 5 feet 4, weight is 217, BMI is 37. 2. Vital signs 111/59, pulse is 78, respirations 16, oxygen sat is 98%. Pain score 6/10. The patient denies any dizziness, does not need assistance with ambulation, has not fallen in the last 3 months. She is not on any blood thinners or medication for hypertension. Her opioid therapy is greater than 6 weeks; therefore, an opioid signed contract is on the chart. 3. Risk assessment is moderate. Functional assessment: . Recreational drug use, she denies. She is not a smoker and does not drink alcohol. According to the prescription monitoring system she is due to fill early next week. Her morphine mEq is 22 MME. She does take a benzodiazepine of alprazolam, which is closely monitored as well. There is a random drug screen [address] [address] PAIN MANAGEMENT CONSULTATION Name: MAYUR GIFFORD ZAINA Room #: REG [facility] Jarvis#: [id number] Admission: 11/23/20 Attend Phys: Mayur Taveras Discharge: Date of : 71 Report #: [id number] on the chart from earlier this year that is appropriate for all of her medications. PHYSICAL EXAMINATION: GENERAL: This is alert and orientated, obese 45-year-old female who is well developed, well nourished. She appears her stated age, rating her pain score today at 6/10. HEENT: Normocephalic, atraumatic. Pupils equal, round and reactive. She is wearing a mask. EXTREMITIES: No clubbing, no cyanosis. No appreciable edema. MUSCULOSKELETAL: She has tenderness to palpation, 16-18 tender points indicating fibromyalgia, also tenderness in her abdominal area with pain that radiates into her pelvic area for her interstitial cystitis. She has small lesions that are showing no signs of crusting on her right upper shoulder in regards to her shingles. ASSESSMENT: 1. Chronic abdominal pain. 2. Chronic pelvic pain. 3. Fibromyalgia. 4. Chronic intractable pain. 5. Recent herpetic zoster outbreak, treated with Valacyclovir. 5. Complex medical management utilizing scheduled medications. We reviewed the fact that opiate medications are being used to provide analgesia adequate to support activities of daily living, not attempting to achieve a specific pain score on the 0-10 Visual Analog Scale. The current opiate medications are providing sufficient analgesia to allow the patient to participate in activities of daily living. The patient is not exhibiting any aberrant behavior suggestive of drug diversion. The patient is not having any adverse reactions to medications. The patient is not suffering from daytime somnolence or mental acuity changes. The patient is managing opiate-induced constipation with appropriate eywe-oyb-vodetlm agents and dietary considerations. The patient was counseled on concern for caution with operating a motor vehicle while using opiate medications. A physical exam was performed and the patient's functional status was evaluated. All patients with back pain were advised against the bed rest greater than 4 days and were advised to return to normal activities. Pain score assessment was noted and the treatment plan was reviewed with the patient. All current medications, both prescribed and OTC were reviewed and reconciled on the electronic medical record. Tobacco screening was accomplished and smoking cessation was advised when indicated. BMI was noted and diet/exercise modification was recommended for all patients following outside normal parameters. [place] [id number] PAIN MANAGEMENT CONSULTATION Name: MAYUR GIFFORD Room #: REG [facility].#: [id number] Admission: 11/23/20 Attend Phys: Mayur Taveras Discharge: Date of : 71 Report #: [id number] I reviewed with the patient today their responsibilities to safeguard prescription medications, reviewed their responsibility to utilize medications only as prescribed by the physician. They are to seek and receive pain medications only from 1 physician group ( [facility]). They are to use 1 pharmacy and keep the clinic informed if they change pharmacies. Their responsibilities include making followup visits in a timely fashion and to avoid abrupt discontinuation of medication usage. Their responsibilities further include bringing their medications (bottles from the pharmacy with residual pills) to the visit for possible confirmation of pill counts and the patient understands it is their responsibility to submit to random drug screens to ensure both that the medications prescribed are present, and that no other controlled substances are present. All prescriptions provided today were generated electronically. PLAN: 1. We discussed treatment options with the patient today. Since this is her second outbreak of herpes zoster this year, I encouraged her to discuss with her primary care doctor a possible low-dose acyclovir or valacyclovir to see if this will keep her shingles at bay trialing this for 6 months. The patient will discuss with her primary care doctor. 2. The patient is having a flare of her interstitial cystitis due to urinary tract infection. She does report normally, her pain is better controlled on her regimen that we provide for her. We will not increase this medication. Hopefully, she will start an antibiotic and that will help reduce some of her pelvic pain. Today, we will continue her hydrocodone 7.5/325, #90 sending this electronically for 3 months. 3. We will continue her Lyrica 150 mg twice a day, #60 with 2 additional refills. This is also beneficial in helping her shingles neuropathic pain. At this moment, the patient does not feel she needs refills of her cyclobenzaprine. She does take this on as needed basis, averaging 1 tablet a day. She will call if she finds she needs additional refills of this medication. Time spent in patient with consultation, reviewing recent studies and clinical notes, physician reports, physical examination and correlation of findings and medical documentation to determine possible treatment options, 17 minutes. Time spent preparing for appointment, reviewing prescription monitoring system, reviewing previous records and proposed treatment options, reviewing current medications, 5 minutes. Time spent preparing and sending electronic prescriptions with collaborating physician, Dr. Urban Wooten, and documentation of visit and plan of treatment 5 minutes. Total time spent 27 minutes. By: [id number] Mayur Taveras /marcelino
[2020-11-23 09:39] VITALS: BP 111/59
--- NOTE | 2020-11-23 09:46 | NUR ---
Pain Clinic Assessment: 1. History of Osteoarthritis: Not Applicable History of Rheumatoid Arthritis: Not Applicable 2. Height: 5 ft. 4 in. 162.6 cm. Weight: 217.2 lb. oz. 98.521 kg. Patient's BMI: 37.3 3. Vital Signs: BP: 111/59 Pulse: 78 Resp: 16 Temp: 02 Sat: 98 ECG Mon: 4. Pain Intensity: 6 5. Fall Risk: Dizziness: N Needs help standing or walking: N Fallen in the last 3 months: N Fall risk comments: 6. Patient on Blood Thinner: None 7. History of Hypertension: N 8. Opioid Therapy greater than 6 weeks: Y Opiate Contract Signed: 11/29/15 9. Risk Assessment Tool Provided: MODERATE RISK 7 10. Functional Assessment Tool: 11. Recreational Drug Use: Never Drug Type: Tobacco Use: Never Smoker Tobacco Type: Amount or Packs/day: How Many Years: Alcohol Use: No Frequency: Quant:
== END ==
LOC: PAIN 06:58
PROVIDERS: ATTEND Clinical Nurse Specialist Adult Health
DX: G89.29 Other chronic pain (principal); R10.2 Pelvic and perineal pain; M79.7 Fibromyalgia; Z68.37 Body mass index [BMI] 37.0-37.9, adult; Z79.891 Long term (current) use of opiate analgesic; Z79.899 Other long term (current) drug therapy; Z98.890 Other specified postprocedural states

== ENCOUNTER → 2021-02-28 | Outpatient (CLI) | payer OTHER ==
[~2021-02-28] VITALS: Ht 162.6 cm; Wt 96.7 kg
[~2021-02-28] MED LIST changes: +PRILOSEC OTC20 MG PO
[2021-02-28 09:04] VITALS: BP 104/69
--- NOTE | 2021-02-28 09:10 | NUR ---
Pain Clinic Assessment: 1. History of Osteoarthritis: Not Applicable History of Rheumatoid Arthritis: Not Applicable 2. Height: 5 ft. 4 in. 162.6 cm. Weight: 213.2 lb. oz. 96.707 kg. Patient's BMI: 36.6 3. Vital Signs: BP: 104/69 Pulse: 90 Resp: 16 Temp: 02 Sat: 100 ECG Mon: 4. Pain Intensity: 4 5. Fall Risk: Dizziness: N Needs help standing or walking: N Fallen in the last 3 months: N Fall risk comments: 6. Patient on Blood Thinner: None 7. History of Hypertension: N 8. Opioid Therapy greater than 6 weeks: Y Opiate Contract Signed: 11/29/15 9. Risk Assessment Tool Provided: MODERATE RISK 7 10. Functional Assessment Tool: 11. Recreational Drug Use: Never Drug Type: Tobacco Use: Never Smoker Tobacco Type: Amount or Packs/day: How Many Years: Alcohol Use: No Frequency: Quant:
--- NOTE | 2021-03-01 08:12 | HPC ---
[facility] [place] [address] PAIN MANAGEMENT CONSULTATION Name: BALTAMAYURBILL MAHAJAN Room #: REG [facility] M..#: [id number] Admission: 02/28/21 Attend Phys: Mayur Taveras Discharge: Date of : 71 Report #: [id number] THIS REPORT FOR: cc: Vilma Boyer MD,Vilma Taveras,Mayur COLE ~ cc: Vilma Boeyr, Urban Wooten DO DATE OF SERVICE: 02/28/2021 CHIEF COMPLAINT: Abdominal pain, interstitial cystitis. HISTORY OF PRESENT ILLNESS: This is a pleasant, anxious 45-year-old female who returns today for renewal of her opioid medications. Today, she is reporting a pain score of 4/10, mostly located in her abdominal region. She reports having another urinary tract infection and this has been causing some additional pelvic pain. She reports that she has had several this year. She is awaiting the cultures to start antibiotics. They are considering starting her on a maintenance antibiotic since she has had so many and does not seem to clear. She does take a probiotic and digestive enzymes to combat the diarrhea that is associated with the antibiotic use. The patient reports her pain as an aching, burning, sharp sensation, worse with eating and then her flares in her interstitial cystitis. The patient also reports recently having an EGD where she was told she had inflammation in her intestinal tract as well as a possible ulcer and started on omeprazole. The patient does not take any anti-inflammatory medications. Due to all of these issues, she has lost 5 pounds since our last visit. The patient reports pain has been increased with eating, so therefore she has not been hungry and therefore, she has lost weight. She does not report starting to exercise. ALLERGIES: Please see extensive list, multiple allergies listed. CURRENT MEDICATIONS: Omeprazole, Lyrica 150 mg b.i.d., hydrocodone 7.5/325 q. 8 hours p.r.n., cyclobenzaprine p.r.n., Senokot, Zyrtec, alprazolam 0.5 mg t.i.d., digestive enzymes, probiotic, Zofran and trazodone. PQRS: 1. She has known arthritic issues, does suffer from fibromyalgia. Height is 5 feet 4 inches, weight is 213, BMI is 36. 2. Vital signs 104/69, pulse is 90, respirations 16, oxygen sat is 100. 3. Pain score is 4/10. 4. Denies dizziness, does not need help walking or standing, has not fallen in the last 3 months. The patient is not on any blood thinners, and does not have a history of hypertension. 5. Opioid therapy is greater than 6 weeks; therefore, [place] [address] PAIN MANAGEMENT CONSULTATION Name: MAYUR GIFFORD ZAINA Room #: REG CL M..#: [id number] Admission: 02/28/21 Attend Phys: Mayur Taveras Discharge: Date of : 71 Report #: [id number] is on the chart. 6. Risk assessment is moderate. Functional assessment is 29/70. 7. Recreational drug use, she denies. She is not a smoker and does not drink alcohol. According to the prescription monitoring system, the patient is filling appropriately. She is due to fill her medications today. Morphine mEq is 22 MME per day. There is a drug screen on the chart that is appropriate for her medications. She does take benzodiazepines from her psychologist on a daily basis, is closely monitored for that as well. The patient reports not taking the medication with her hydrocodone. PHYSICAL EXAMINATION: GENERAL: This is alert and orientated, anxious, obese 45-year-old female who appears her stated age, rating her current pain score at 4/10 today. HEENT: Normocephalic, atraumatic. Pupils equal, round and reactive. She is wearing a mask for COVID precautions. EXTREMITIES: No clubbing, no cyanosis. No appreciable edema. MUSCULOSKELETAL: She has tenderness to palpation in her back as well as in her abdominal area with the presence of her fibromyalgia. Pain radiates from her abdominal area into her pelvic area for her interstitial cystitis as well as her urinary tract infection. Upper and lower extremity strength is symmetrical at 5/5. ASSESSMENT: 1. Chronic abdominal pain. 2. Chronic pelvic pain with interstitial cystitis. 3. Fibromyalgia. 4. Chronic intractable pain. 5. Ongoing urinary tract infections causing abdominal pain. 6. Complex medical management utilizing scheduled medications. We reviewed the fact that opiate medications are being used to provide analgesia adequate to support activities of daily living, not attempting to achieve a specific pain score on the 0-10 Visual Analog Scale. The current opiate medications are providing sufficient analgesia to allow the patient to participate in activities of daily living. The patient is not exhibiting any aberrant behavior suggestive of drug diversion. The patient is not having any adverse reactions to medications. The patient is not suffering from daytime somnolence or mental acuity changes. The patient is managing opiate-induced constipation with appropriate [id number] agents and dietary considerations. The patient was counseled on concern for caution with operating a motor vehicle while using opiate medications. A physical exam was performed and the patient's functional status was evaluated. All patients with back pain were advised against the bed rest greater than 4 [facility] [address] [place] [address] PAIN MANAGEMENT CONSULTATION Name: MAYUR GIFFORD ZAINA Room #: REG CL M..#: [id number] Admission: 02/28/21 Attend Phys: Mayur KELSEY Taveras Discharge: Date of : 71 Report #: [id number] days and were advised to return to normal activities. Pain score assessment was noted and the treatment plan was reviewed with the patient. All current medications, both prescribed and OTC were reviewed and reconciled on the electronic medical record. Tobacco screening was accomplished and smoking cessation was advised when indicated. BMI was noted and diet/exercise modification was recommended for all patients following outside normal parameters. I reviewed with the patient today their responsibilities to safeguard prescription medications, reviewed their responsibility to utilize medications only as prescribed by the physician. They are to seek and receive pain medications only from 1 physician group ( [facility]). They are to use 1 pharmacy and keep the clinic informed if they change pharmacies. Their responsibilities include making followup visits in a timely fashion and to avoid abrupt discontinuation of medication usage. Their responsibilities further include bringing their medications (bottles from the pharmacy with residual pills) to the visit for possible confirmation of pill counts and the patient understands it is their responsibility to submit to random drug screens to ensure both that the medications prescribed are present, and that no other controlled substances are present. All prescriptions provided today were generated electronically. PLAN: 1. We discussed treatment options with the patient today. When I encouraged the patient not to take her benzodiazepines with her opioid, she reports that she does not take these at the same time, has very closely monitored herself with these medications. 2. We will continue her hydrocodone 7.5/325. The patient finds this effective in controlling significant portion of her pain. Scripts for 90 tablets will be sent electronically by Dr. Urban Wooten for 3 months. 3. We will continue her Lyrica 150 mg b.i.d. with 2 additional refills for her fibromyalgia. 4. She does take occasional Flexeril and we provided her with 90 tablets with 2 additional refills. She has not had this filled since May. Time spent in consultation, reviewing recent studies and clinical notes, physical examination and correlation of findings and medical documentation to determine possible treatment options, 12 minutes. Time spent preparing for appointment, reviewing prescription monitoring system reports, reviewing previous records and proposed treatment options and reviewing current medications, 5 minutes. Time spent preparing and sending electronic prescriptions with collaborating physician, Dr. Urban Wooten and documentation of visit and plan of treatment, [address] [address] PAIN MANAGEMENT CONSULTATION Name: MAYUR GIFFORD ZAINA Room #: REG CLI ..#: [id number] Admission: 02/28/21 Attend Phys: Mayur Taveras Discharge: Date of : 71 Report #: [id number] Total time spent, 22 minutes. <ELECTRONICALLY SIGNED> By: Mayur Taveras 03/01/21 0812 [id number] Mayur van
== END ==
LOC: PAIN 08:49
PROVIDERS: ATTEND Clinical Nurse Specialist Adult Health
DX: N30.10 Interstitial cystitis (chronic) without hematuria (principal); G89.29 Other chronic pain; R10.2 Pelvic and perineal pain; R10.9 Unspecified abdominal pain; M79.7 Fibromyalgia; Z79.899 Other long term (current) drug therapy; Z88.8 Allergy status to other drugs, medicaments and biological substances

== ENCOUNTER → 2021-05-30 | Outpatient (CLI) | payer OTHER ==
[~2021-05-30] VITALS: Ht 162.6 cm; Wt 97.1 kg
[2021-05-30 11:14] VITALS: BP 102/74
--- NOTE | 2021-05-30 11:39 | NUR ---
Pain Clinic Assessment: 1. History of Osteoarthritis: Not Applicable History of Rheumatoid Arthritis: Not Applicable 2. Height: 5 ft. 4 in. 162.6 cm. Weight: 214.0 lb. oz. 97.070 kg. Patient's BMI: 36.7 3. Vital Signs: BP: 102/74 Pulse: 85 Resp: 16 Temp: 02 Sat: 99 ECG Mon: 4. Pain Intensity: 4-5 5. Fall Risk: Dizziness: N Needs help standing or walking: N Fallen in the last 3 months: N Fall risk comments: 6. Patient on Blood Thinner: None 7. History of Hypertension: N 8. Opioid Therapy greater than 6 weeks: Y Opiate Contract Signed: 11/29/15 9. Risk Assessment Tool Provided: MODERATE RISK 7 10. Functional Assessment Tool: 11. Recreational Drug Use: Never Drug Type: Tobacco Use: Never Smoker Tobacco Type: Amount or Packs/day: How Many Years: Alcohol Use: No Frequency: Quant:
== END ==
LOC: PAIN 07:04
PROVIDERS: ATTEND Clinical Nurse Specialist Adult Health
DX: N30.11 Interstitial cystitis (chronic) with hematuria (principal); G89.29 Other chronic pain; R10.9 Unspecified abdominal pain; R10.2 Pelvic and perineal pain; M79.7 Fibromyalgia; Z79.899 Other long term (current) drug therapy; Z88.8 Allergy status to other drugs, medicaments and biological substances